=== PATIENT | male | born 1985 | race Caucasian/White ===

== ENCOUNTER 2018-09-07 01:45 | Emergency (ER) | payer SELFPAY ==
--- OUTSIDE RECORDS SUMMARY | 2018-09-07 01:48 | XMS REPORT ---
:1985 [facility] Address [address] [place] [address] Care Team Providers Name Role Phone UNKNOWN, REFFERING Primary Care Provider Unavailable SAIMA HUANG M.D. Unavailable Unavailable Problems This patient has no known problems. Allergies, Adverse Reactions, Alerts This patient has no known allergies or adverse reactions. Medications This patient has no known medications. Results Test Description Test Time Test Comments Text Results Atomic Results Result Comments RPR, Qual 2017-02-09 13:29:00 Test Item Value Reference Range Comments RPR (test code=RPR) Non-Reactive Non-Reactive [id number] 02:45:00 Test Item Value Reference Range Comments Amphetamine (test code=AMPH) Negative Negative For diagnostic purposes only, positive results should always be assessedin conjunctionwith the patient's medical history,clinical examination and otherfindings.To fulfill legal requirements, a more specific alternate chemical methodmust be used inorder to obtain a Confirmed analytical result. GC/MS is the preferred confirmatory method. Barbiturates (test code=CALLIE) Negative Negative Benzodiazepine (test Negative Negative code=HECTOR) Cocaine (test code=COCA) Negative Negative Methadone (test code=MTHD) Negative Negative Opiates (test code=OPIA) Negative Negative PCP (test code=PCP) Negative Negative Propoxyphene (test Negative Negative code=PROPOX) THC (test code=THC) Negative Negative Alcohol, Urine (test <0.01 g/dL 0.00-0.01 code=ETOHU) Comprehensive Metabolic [id number] 00:44:00 Test Item Value Reference Range Comments Sodium (test code=NA) 137 mmol/L 135-145 Potassium (test code=K) 3.8 mmol/L 3.5-5.1 Chloride (test code=CL) 101 mmol/L 98-105 Carbon Dioxide (test 24 mmol/L 22-29 code=CO2) Glucose (test code=GLU) 115 mg/dL 70-115 Blood Urea Nitrogen 10 mg/dL 6-20 (test code=BUN) Creatinine (test 0.7 mg/dL 0.7-1.2 code=CREAT) Calcium (test code=CA) 9.6 mg/dL 8.3-10.5 Prot Total (test 6.7 g/dL 6.4-8.3 code=TP) Albumin (test code=ALB) 4.3 g/dL 3.5-5.2 A/G Ratio (test 1.8 Ratio code=AGRATIO) Globulin (test 2.4 2.9-3.1 code=GLOB) Bili Total (test <0.1 mg/dL 0.1-0.9 code=TBIL) Alk Phos (test 95 U/L 40-129 code=APHOS) AST (test code=AST) 18 U/L 1-40 ALT (test code=ALT) 16 U/L 1-41 BUN/Creatinine Ratio 14.3 (test code=BCRATIO) Anion Gap (test 12 mmol/L 7-16 code=AGAP) Estimated GFR (test >60 mL/min/1.73m2 eGFR (estimated Glomerular code=GFR) Filtration Rate) is an estimated value,calculated from the patient's serum creatinine using the MDRD equation.It is NOT the patient's actual GFR. The eGFR provides a more clinicallyuseful measure of kidney disease than serum creatinine alone.This calculation takes sex and race into account, if the informationis provided. If the race is not provided, and the patient isAfrican-Moldovan, multiply by 1.212. If sex is not provided, and thepatient is female, multiply by 0.742. Results for patients <18 years ofage have not been validated by the MDRD study and should be interpretedwith caution.eGFR Result Interpretation:eGFR > or=60 is in the Normal RangeeGFR < 60 may mean kidney diseaseeGFR < 15 may mean kidney failureRanges recommended by the National Kidney Foundation,http://nkdep.nih .gov CBC with [id number] 00:26:00 Test Item Value Reference Range Comments WBC (test code=WBC) 8.9 K/cumm 4.4-10.5 RBC (test code=RBC) 4.46 M/cumm 4.10-5.70 Hemoglobin (test code=HGB) 13.6 gm/dL 13.4-17.4 Hematocrit (test code=HCT) 41.9 % 38.7-52.0 MCV (test code=MCV) 94.0 fL 80-100 MCH (test code=MCH) 30.6 pg 27.0-32.5 MCHC (test code=MCHC) 32.5 g/dL 32.0-37.5 RDW (test code=RDW) 13.1 % 11.5-14.5 Platelet Count (test code=PLTCT) 368 K/cumm 140-440 MPV (test code=MPV) 7.5 fL Diff Method (test code=DIFFM) Auto Neutrophil (test code=NEUT) 39.1 % 36-70 Lymphocyte (test code=LYMPH) 46.6 % 12-44 Monocyte (test code=MONO) 6.1 % 0-11 Eosinophil (test code=EOS) 7.2 % 0-7 Basophil (test code=BASO) 0.9 % 0-2 Neutro Abs (test code=ANEUT) 3.5 K/cumm 1.6-7.4 Lymph Abs (test code=ALYMPH) 4.2 K/cumm 0.5-4.6 [place] Abs (test code=AMONO) 0.5 K/cumm 0.0-1.2 Eos Abs (test code=AEOS) 0.64 K/cumm 0.00-0.74 Baso Abs (test code=ABASO) 0.1 K/cumm 0.00-0.21 Urinalysis [id number] 00:19:00 Test Item Value Reference Range Comments Color (test code=COLOR) Yellow Yellow,Straw,Pl yellow Clarity (test code=CLAR) Clear Clear Specific [place] (test code=SPGR) 1.008 1.001-1.035 pH (test code=PH) 7.0 5.0-9.0 Ketone (test code=KET) Negative mg/dL Negative Glucose (test code=GLUCUR) Negative mg/dL Negative Protein (test code=PROT) Negative mg/dL Negative Bilirubin (test code=BILI) Negative mg/dL Negative Occult Blood (test code=UDOB) Negative Negative Urobilinogen (test code=UROB) 0.2 mg/dL 0.2-1.0 Nitrite (test code=NIT) Negative Negative Leuk Esterase (test code=LEUK) Negative Negative Micros Exam (test code=MEXAM) Not indicated
[2018-09-07] MEDS ORDERED: ACETAMINOPHEN 500 MG TAB ONE (02:54)
[2018-09-07] MEDS ORDERED: IBUPROFEN 400 MG TAB ONE (02:54)
[2018-09-07] MEDS ORDERED: IBUPROFEN 200 MG TAB PO ONE (02:54)
[2018-09-07 04:32] LABS: Protime INR 1.01
[2018-09-07 04:33] LABS: Absolute Lymphocytes (CBC) 3.7 K/uL (0.7-4.9); Absolute Monocytes 0.7 K/uL (0.1-1.3); Absolute Neutrophil 5.3 K/uL (1.8-8.0); Basophils % 1.2 % (0-1.3); Eosinophils % 3.9 % (0-4.4); Hematocrit 38.3 % (39.6-49.0); Lymphocytes % 35.8 % (15.3-44.8); MPV 8.7 fL (7.6-11.3); Monocytes % 6.9 % (3.3-12.3); RBC Red Blood Cell Count 4.52 M/uL (4.33-5.43)
[2018-09-07 04:48] LABS: Potassium 2.3 mmol/L (3.5-5.1)
[2018-09-07] MEDS ORDERED: POTASSIUM 25 MEQ EFFERV TAB ONE (05:12)
[2018-09-07] MEDS ORDERED: POTASSIUM CL SA 10 MEQ TAB PO ONE (05:19)
[2018-09-07 05:47] LABS: Urine Culture Reflex Order NOT NEEDED
[2018-09-07 05:48] LABS: Urine Bacteria <20 /HPF (NONE SEEN); Urine RBC NONE SEEN /HPF (NONE SEEN)
[2018-09-07 05:49] LABS: Urine Blood NEGATIVE (NEG); Urine Glucose NEGATIVE (NEG); Urine Protein NEGATIVE (NEG)
[2018-09-07 05:58] LABS: Barbiturates NEGATIVE (NEGATIVE); Benzodiazepines NEGATIVE (NEGATIVE); Cocaine NEGATIVE (NEGATIVE); METHAMPHETAM NEGATIVE (NEGATIVE); Methadone NEGATIVE (NEGATIVE); Opiates NEGATIVE (NEGATIVE); Phencyclidine NEGATIVE (NEGATIVE); THC Cannibis NEGATIVE (NEGATIVE)
--- NOTE | 2018-09-07 06:31 | ER ---
Nurse's Notes [facility] Name: Vaughn Quintero Jr Age: 33 yrs Sex: Male : 1985 Arrival Date: 09/07/2018 Time: 01:46 Bed 7 Private MD: Diagnosis: Bilateral foot pain;insomnia;hypokalemia Presentation: 09/07 02:01 Presenting complaint: Patient states: that he is having pain and edema to both ankles, fc which started 3-4 days ago. Also has not slept in the past 4 days. Mother states: (called 1 hr prior to pts arrival) that pt was picked up by the police because he has schizo, bipolar and has not taken his meds in 6 years. Then states that pt has not slept in 6 days and is very "bipolar" at this time. She is "scared " of pt and is worried about him returning to her home. She wants pt to be taken to psych place. She is requesting us to contact her when he arrives to ER. Her name is Ledy Mercer [phone]. Transition of care: patient was not received from another setting of care. Onset of symptoms was September 03, 2018. Risk Assessment: Do you want to hurt yourself or someone else? Patient reports no desire to harm self or others. Initial Sepsis Screen: Does the patient meet any 2 criteria? No. Patient's initial sepsis screen is negative. Does the patient have a suspected source of infection? No. Patient's initial sepsis screen is negative. Care prior to arrival: None. 02:01 Method Of Arrival: Ambulatory 02:01 Acuity: KARTIK 3 fc Historical: - Allergies: 02:05 No Known Allergies; fc - Home Meds: 02:05 None [Active]; fc - PMHx: 02:05 Chronic pain; fc - PSHx: 02:05 left ankle; shoulder; fc - Immunization history:: Last tetanus immunization: unknown. - Social history:: Smoking status: Patient uses tobacco products, smokes one pack cigarettes per day. Patient/guardian denies using alcohol, street drugs. - Ebola Screening: : Patient negative for fever greater than or equal to 101.5 degrees Fahrenheit, and additional compatible Ebola Virus Disease symptoms Patient denies exposure to infectious person Patient denies travel to an Ebola-affected area in the 21 days before illness onset. - Family history:: not pertinent. - Hospitalizations: : No recent hospitalization is reported. Screenin:06 Abuse screen: Denies threats or abuse. Nutritional screening: No deficits noted. fc Tuberculosis screening: No symptoms or risk factors identified. Fall Risk None identified. Assessment: 02:15 General: Appears in no apparent distress. Behavior is drowsy, flat. General: Pt reports tl2 that he has not been able to sleep for 4 days. Denies SI or HI. MD is going to consult [facility] for psych eval. Pain: Complains of pain in ankles. Neuro: Level of Consciousness is awake, alert, obeys commands, Oriented to person, place, time, situation. Cardiovascular: Denies chest pain. Respiratory: Airway is patent Respiratory effort is even, unlabored, Respiratory pattern is regular, symmetrical. GI: No signs and/or symptoms were reported involving the gastrointestinal system. : No signs and/or symptoms were reported regarding the genitourinary system. Derm: Skin is pink, warm \\T\\ dry. 02:21 Reassessment: Spoke with Ghazal at [employer] dispatch [phone] who states that pt was fc brought to ER by [employer] police as a curtesy for his ankle pain. Dr Delgado then spoke with officer that brought pt here. 03:30 Reassessment: pt appears to be sleeping, RR even and unlabored. tl2 05:30 Reassessment: [facility] ER dyeing machine feeder at bedside. tl2 05:42 Reassessment: pt refuses vital signs. tl2 06:51 Reassessment: Patient and/or family updated on plan of care and expected duration. Pain ea level reassessed. Patient is alert, oriented x 3, equal unlabored respirations, skin warm/dry/pink. Discharge instruction given to patient, verbalized the understanding of instruction. No s/s of pain or discomfort noted at this time. Pt left ED ambulatory tolerating well, reports he would take the bus home. Vital Signs: 02:05 BP 123 / 81; Pulse 81; Resp 16; Temp 98.0(O); Pulse Ox 99% on R/A; Weight 63.5 kg (R); fc Height 5 ft. 2 in. (157.48 cm) (R); Pain 7/10; 06:45 BP 120 / 70; Pulse 78; Resp 18; Temp 97.6; Pulse Ox 98% on R/A; Pain 0/10; ea 02:05 Body Mass Index 25.61 (63.50 kg, 157.48 cm) ED Course: 01:46 Patient arrived in ED. am2 02:04 Triage completed. 02:05 Arm band placed on Patient placed in an exam room, on a stretcher. 02:06 Patient has correct armband on for positive identification. Bed in low position. Call light in reach. 02:24 Pedro Delgado MD is Attending Physician. wa 04:14 Inserted saline lock: 22 gauge in right hand, using aseptic technique. placed by ines Fam. 04:15 Initial lab(s) drawn, by mt, sent to lab. tl2 04:48 Notified ED physician of a critical lab result(s). potassium of 2.3. 06:45 IV discontinued, intact, bleeding controlled, No redness/swelling at site. Pressure ea dressing applied. 06:53 No provider procedures requiring assistance completed. ea Administered Medications: 02:45 Drug: Tylenol 1000 mg Route: PO; ea 03:00 Follow up: Response: No adverse reaction; Marked relief of symptoms ea 02:45 Drug: Motrin 600 mg Route: PO; ea 05:39 Follow up: Response: No adverse reaction; Pain is decreased ea 05:26 Not Given (Patient Refused): Potassium Effervescent Tablet 50 mEq PO once; dissolve in ea 4 ounces of water or juice 05:27 CANCELLED (Other Intervention Used): Potassium Chloride 40 mEq PO once ea 05:29 Drug: Potassium Chloride 50 mEq Route: PO; ea 06:00 Follow up: Response: No adverse reaction ea Outcome: 06:30 Discharge ordered by . wa 06:53 Discharged to home ambulatory. ea 06:53 Condition: stable 06:53 Discharge instructions given to patient, Instructed on discharge instructions, follow up and referral plans. medication usage, Demonstrated understanding of instructions, follow-up care, medications, Prescriptions given X 2. 06:56 Patient left the ED. ea Signatures: Marleni Aponte RN RN Berenice Temple RN RN 2 Cathi Marin Elena, RN RN Pedro Delgado MD MD wa Corrections: (The following items were deleted from the chart) 02:21 02:01 Presenting complaint: Patient states: that he is having pain and edema to both fc ankles, which started 3-4 days ago. Also has not slept in the past 4 days. fc
--- NOTE | 2018-09-07 06:32 | EDPHYS ---
Physician Documentation [facility] Name: Vaughn Quintero Jr Age: 33 yrs Sex: Male : 1985 Arrival Date: 09/07/2018 Time: 01:46 Bed 7 Private MD: ED Physician Pedro Delgado HPI: 09/07 06:16 This 33 yrs old Male presents to ER via Ambulatory with complaints of cant wa sleep, Decreased Appetite, ankle pain. 06:16 The patient presents to the emergency department with insomnia. per patient, difficulty wa sleeping. both feet hurt. denies trauma. pt was dropped off by police to check these symptoms. pt's mother called and states pt has been off his meds for over a month and needs his meds. per his mum, pt has bipolar d/o, schizophrenia, and OCD. pt however denies SI of HI. . Onset: The symptoms/episode began/occurred 1 week(s) ago. Past psychiatric history: Prior diagnosis: bipolar disorder, schizophrenia, Psychiatric medications include: unknown. Past psychiatric history: Primary psychiatric physician: the patient's psychiatric physician is not known, it is unknown whether or not the patient has had a prior suicide gesture, the patient has a previous inpatient psychiatric history, per pt's mum at [facility]. Associated signs and symptoms: Pertinent negatives: pt denies. 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 Severity of symptoms: At their worst the symptoms were moderate in the emergency department the symptoms are unchanged. It is unknown whether or not the patient has had similar symptoms in the past. The patient has not recently seen a physician. pt states here for pain in the feet. denies other complaints. Historical: - Allergies: 02:05 No Known Allergies; fc - Home Meds: 02:05 None [Active]; fc - PMHx: 02:05 Chronic pain; fc - PSHx: 02:05 left ankle; shoulder; fc - Immunization history:: Last tetanus immunization: unknown. - Social history:: Smoking status: Patient uses tobacco products, smokes one pack cigarettes per day. Patient/guardian denies using alcohol, street drugs. - Ebola Screening: : Patient negative for fever greater than or equal to 101.5 degrees Fahrenheit, and additional compatible Ebola Virus Disease symptoms Patient denies exposure to infectious person Patient denies travel to an Ebola-affected area in the 21 days before illness onset. - Family history:: not pertinent. - Hospitalizations: : No recent hospitalization is reported. ROS: 06:21 Constitutional: Negative for fever, chills, and weight loss, Eyes: Negative for injury, wa pain, redness, and discharge, ENT: Negative for injury, pain, and discharge, Neck: Negative for injury, pain, and swelling, Cardiovascular: Negative for chest pain, palpitations, and edema, Respiratory: Negative for shortness of breath, cough, wheezing, and pleuritic chest pain, Abdomen/GI: Negative for abdominal pain, nausea, vomiting, diarrhea, and constipation, Back: Negative for injury and pain, : Negative for injury, bleeding, discharge, and swelling, Skin: Negative for injury, rash, and discoloration, Neuro: Negative for headache, weakness, numbness, tingling, and seizure. 06:21 MS/extremity: Positive for pain, of the right foot and left foot. 06:21 Psych: Positive for depression, Negative for auditory hallucinations, visual hallucinations, homicidal ideation, suicide gesture, suicidal ideation. 06:21 All other systems are negative. Exam: 06:22 Constitutional: This is a well developed, well nourished patient who is awake, alert, wa and in no acute distress. Head/Face: Normocephalic, atraumatic. Eyes: Pupils equal round and reactive to light, extra-ocular motions intact. Lids and lashes normal. Conjunctiva and sclera are non-icteric and not injected. Cornea within normal limits. Periorbital areas with no swelling, redness, or edema. ENT: Nares patent. No nasal discharge, no septal abnormalities noted. Tympanic membranes are normal and external auditory canals are clear. Oropharynx with no redness, swelling, or masses, exudates, or evidence of obstruction, uvula midline. Mucous membranes moist. Neck: Trachea midline, no thyromegaly or masses palpated, and no cervical lymphadenopathy. Supple, full range of motion without nuchal rigidity, or vertebral point tenderness. No Meningismus. Chest/axilla: Normal chest wall appearance and motion. Nontender with no deformity. No lesions are appreciated. Cardiovascular: Regular rate and rhythm with a normal S1 and S2. No gallops, murmurs, or rubs. Normal PMI, no JVD. No pulse deficits. Respiratory: Lungs have equal breath sounds bilaterally, clear to auscultation and percussion. No rales, rhonchi or wheezes noted. No increased work of breathing, no retractions or nasal flaring. Abdomen/GI: Soft, non-tender, with normal bowel sounds. No distension or tympany. No guarding or rebound. No evidence of tenderness throughout. Back: No spinal tenderness. No costovertebral tenderness. Full range of motion. Skin: Warm, dry with normal turgor. Normal color with no rashes, no lesions, and no evidence of cellulitis. MS/ Extremity: Pulses equal, no cyanosis. Neurovascular intact. Full, normal range of motion. Neuro: Awake and alert, GCS 15, oriented to person, place, time, and situation. Cranial nerves II-XII grossly intact. Motor strength 5/5 in all extremities. Sensory grossly intact. Cerebellar exam normal. Normal gait. 06:22 Psych: Behavior/mood is cooperative, Affect is calm, Oriented to person, Patient has no thoughts/intents to harm self or others. Judgement / Insight is normal. Delusions/hallucinations are not present. 06:29 Musculoskeletal/extremity: Extremities: all appear grossly normal, with no appreciated wa pain with palpation, ROM: intact in all extremities, Circulation is intact in all extremities. the left foot and right foot Joints: All joints appear normal with full range of motion. Weight bearing: able to fully bear weight, Tendon exam: specific tendon testing normal through active and passive range of motion Vital Signs: 02:05 BP 123 / 81; Pulse 81; Resp 16; Temp 98.0(O); Pulse Ox 99% on R/A; Weight 63.5 kg (R); fc Height 5 ft. 2 in. (157.48 cm) (R); Pain 7/10; 06:45 BP 120 / 70; Pulse 78; Resp 18; Temp 97.6; Pulse Ox 98% on R/A; Pain 0/10; ea 02:05 Body Mass Index 25.61 (63.50 kg, 157.48 cm) fc MDM: 02:24 Patient medically screened. wa 06:23 Differential diagnosis: drug withdrawal. acute psychotic break, depression, psychosis wa secondary to non-compliance, patient denies mother's assertions. spoke with office [place] of police dept who dropped off pt. denied knowledge of pt's violence. states only gave pt a courtesy ride to ED to get checked. Data reviewed: vital signs, nurses notes. 06:25 Test interpretation: by ED physician or midlevel provider: labs noted for low K at 2.3. wa otherwise wnl.. ED course: replaced potassium. bilateral pedal exam noted within nml limits. x-rays not warranted. pain control with Motrin and tylenol. ED course: [facility] psych eval: pt denied symptoms except mild depression. personnel deemed pt fit for out pt treatment. will d/c with f/u. 09/07 03:12 Order name: Acetaminophen ak 09/07 03:12 Order name: Basic Metabolic Panel ak 09/07 03:12 Order name: CBC with Diff ak 09/07 03:12 Order name: ETOH Level; Complete Time: 06:25 ak 09/07 03:12 Order name: PT-INR; Complete Time: 06:25 ak 09/07 03:12 Order name: Salicylate; Complete Time: 06:25 ak 09/07 03:12 Order name: Urine Drug Screen; Complete Time: 06:25 ak 09/07 03:12 Order name: Urine Microscopic Only; Complete Time: 06:25 ak 09/07 03:13 Order name: Acetaminophen Level; Complete Time: 06:25 [facility] 09/07 03:13 Order name: Basic Metabolic Panel; Complete Time: 06:25 [facility] 09/07 03:14 Order name: CBC with Automated Diff; Complete Time: 06:25 [facility] 09/07 05:15 Order name: Urine Dipstick--Ancillary (enter results); Complete Time: 06:25 [facility] 09/07 03:12 Order name: IV Saline Lock; Complete Time: 04:14 ak 09/07 03:12 Order name: Labs collected and sent; Complete Time: 04:14 ak 09/07 03:12 Order name: Urine Dipstick-Ancillary (obtain specimen); Complete Time: 05:39 ak Administered Medications: 02:45 Drug: Tylenol 1000 mg Route: PO; ea 03:00 Follow up: Response: No adverse reaction; Marked relief of symptoms ea 02:45 Drug: Motrin 600 mg Route: PO; ea 05:39 Follow up: Response: No adverse reaction; Pain is decreased ea 05:26 Not Given (Patient Refused): Potassium Effervescent Tablet 50 mEq PO once; dissolve in ea 4 ounces of water or juice 05:27 CANCELLED (Other Intervention Used): Potassium Chloride 40 mEq PO once 05:29 Drug: Potassium Chloride 50 mEq Route: PO; ea 06:00 Follow up: Response: No adverse reaction Disposition: 09/07/18 06:30 Discharged to Home. Impression: Bilateral foot pain, insomnia, hypokalemia. - Condition is Stable. - Discharge Instructions: Insomnia, Hypokalemia. - Prescriptions for Ibuprofen 600 mg Oral Tablet - take 1 tablet by ORAL route every 8 hours As needed take with food; 18 tablet. Potassium Chloride 20 meq Oral Packet - take 1 packet by ORAL route 2 times per day 1 packet in 6 (six) ounces of water or juice; Take after meal; 10 packet. - Medication Reconciliation Form, Thank You Letter, Antibiotic Education, Prescription Opioid Use form. - Follow up: Private Physician; When: 2 - 3 days; Reason: Recheck today's complaints. - Problem is new. - Symptoms have improved. - Notes: follow up with the psychiatrist at [facility] per discussion. take potassium as prescribed Signatures: Dispatcher [employer] EDMarleni Vega RN RN Marleny Melendez RN RN ea AppiahPedro MD MD wa Corrections: (The following items were deleted from the chart) 05:27 05:27 Potassium Chloride Liquid 40 mEq PO once ordered. [facility] 06:31 06:30 09/07/2018 06:30 Discharged to Home. Impression: Bilateral foot pain; insomnia. ak Condition is Stable. Forms are Medication Reconciliation Form, Thank You Letter, Antibiotic Education, Prescription Opioid Use. Follow up: Private Physician; When: 2 - 3 days; Reason: Recheck today's complaints. Problem is new. Symptoms have improved. ak 06:56 06:31 09/07/2018 06:30 Discharged to Home. Impression: Bilateral foot pain; insomnia; ea hypokalemia. Condition is Stable. Forms are Medication Reconciliation Form, Thank You Letter, Antibiotic Education, Prescription Opioid Use. Follow up: Private Physician; When: 2 - 3 days; Reason: Recheck today's complaints. Problem is new. Symptoms have improved. lavinia
[2018-09-07 11:51] VITALS: BP 123/81; TEMP 98; O2SAT 99
== END 2018-09-07 06:56 | disposition home or self-care (01) ==
LOC: ER 01:45
DX: M79.672 Pain in left foot (principal); M79.671 Pain in right foot; E87.6 Hypokalemia; F17.210 Nicotine dependence, cigarettes, uncomplicated
CPT/HCPCS: 36415; 80048; 80307; 80320; 80329; 81003; 81015; 85025; 85610; 99284

== ENCOUNTER 2018-10-09 10:43 | Emergency (ER) | payer SELFPAY ==
--- OUTSIDE RECORDS SUMMARY | 2018-10-09 10:50 | XMS REPORT ---
:1985 [facility] Address [address] [place] [address] Care Team Providers Name Role Phone UNKNOWN, REFFERING Primary Care Provider Unavailable ASIMA HUANG M.D. Unavailable Unavailable Problems This patient has no known problems. Allergies, Adverse Reactions, Alerts This patient has no known allergies or adverse reactions. Medications This patient has no known medications. Results Test Description Test Time Test Comments Text Results Atomic Results Result Comments RPR, Qual 2017-02-09 13:29:00 Test Item Value Reference Range Comments RPR (test code=RPR) Non-Reactive Non-Reactive [id number] 02:45:00 Test Item Value Reference Range Comments [...] (test <0.01 g/dL 0.00-0.01 code=ETOHU) Comprehensive Metabolic [id number] 00:44:00 Test Item Value Reference Range Comments [...] race is not provided, and the patient isAfrican-East [place]orese, multiply by 1.212. If sex is not [...] the National Kidney Foundation,http://nkdep.nih .gov CBC with [id number] 00:26:00 Test Item Value Reference Range Comments [...] Lymph Abs (test code=ALYMPH) 4.2 K/cumm 0.5-4.6 [place] Abs (test code=AMONO) 0.5 K/cumm 0.0-1.2 Eos Abs (test code=AEOS) 0.64 K/cumm 0.00-0.74 Baso Abs (test code=ABASO) 0.1 K/cumm 0.00-0.21 Urinalysis [id number] 00:19:00 Test Item Value Reference Range Comments Color (test code=COLOR) Yellow Yellow,Straw,Pl yellow Clarity (test code=CLAR) Clear Clear Specific [place] (test code=SPGR) 1.008 1.001-1.035 pH (test code=PH) [...]
[2018-10-09] MEDS ORDERED: FAMOTIDINE 20 MG/2 ML VIAL IV ONE (11:44)
[2018-10-09] MEDS ORDERED: ONDANSETRON 4 MG/2 ML VIAL ONE (11:44)
[2018-10-09 12:06] LABS: Absolute Lymphocytes (CBC) 1.4 K/uL (0.7-4.9); Basophils % 1.1 % (0-1.3); Eosinophils % 3.9 % (0-4.4); Hematocrit 36.1 % (39.6-49.0); Lymphocytes % 17.7 % (15.3-44.8); MPV 8.6 fL (7.6-11.3)
[2018-10-09] MEDS ORDERED: NA CHLORIDE 0.9% 1,000 ML ONE ×2 (12:08→14:00)
[2018-10-09 12:16] LABS: Protime INR 0.92
--- NOTE | 2018-10-09 12:36 | EKG ---
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
[2018-10-09 12:47] LABS: Urine Blood NEGATIVE (NEG); Urine Glucose NEGATIVE (NEG); Urine Protein NEGATIVE (NEG)
[2018-10-09 12:56] LABS: Barbiturates NEGATIVE (NEGATIVE); Benzodiazepines NEGATIVE (NEGATIVE); Cocaine NEGATIVE (NEGATIVE); METHAMPHETAM NEGATIVE (NEGATIVE); Methadone NEGATIVE (NEGATIVE); Opiates NEGATIVE (NEGATIVE); Phencyclidine NEGATIVE (NEGATIVE); THC Cannibis POSITIVE (NEGATIVE)
[2018-10-09 13:30] LABS: ALT/SGPT 19 U/L (12-78); AST/SGOT 14 U/L (15-37); Albumin 3.6 g/dL (3.4-5.0); Alkaline Phosphatase 97 U/L (45-117); BUN Blood Urea Nitrogen 8 mg/dL (7-18); Bicarbonate 29 mmol/L (21-32); Bilirubin Direct < 0.1 mg/dL (0-0.2); Bilirubin Total 0.2 mg/dL (0.2-1.0); Glucose Level 94 mg/dL (74-106); Potassium 3.1 mmol/L (3.5-5.1); Protein, Total 6.3 g/dL (6.4-8.2); Sodium Level 140 mmol/L (136-145)
[2018-10-09] MEDS ORDERED: POTASSIUM 25 MEQ EFFERV TAB ONE (14:00)
[2018-10-10] MEDS ORDERED: ACETAMINOPHEN 325 MG TABLET ONE (21:18)
--- NOTE | 2018-10-11 13:47 | ER ---
Nurse's Notes [facility] Name: Vaughn Quintero II Age: 33 yrs Sex: Male : 1985 Arrival Date: 10/09/2018 Time: 10:49 Bed 8 Private MD: Diagnosis: Suicidal/Homicial Ideation Presentation: 10/09 10:52 Presenting complaint: Patient states: SUICIDAL ATTEMPT LAST WEEK WITH OVERDOSE, NOW bp WITH BACK PAIN, ANKLE PAIN, CHRONIC PAIN, SI AND HI. Transition of care: patient was not received from another setting of care. Onset of symptoms is unknown. Risk Assessment: Do you want to hurt yourself or someone else? Patient reports desire/thoughts of hurting themselves or someone else. Provider notified. Initial Sepsis Screen: Does the patient meet any 2 criteria? No. Patient's initial sepsis screen is negative. Does the patient have a suspected source of infection? No. Patient's initial sepsis screen is negative. Care prior to arrival: None. 10:52 Method Of Arrival: Ambulatory bp 10:52 Acuity: KARTIK 2 bp Triage Assessment: 11:01 General: Appears in no apparent distress. Behavior is cooperative. Pain: Complains of tw2 pain in back. Historical: - Allergies: 11:01 ketorolac tromethamine; tw2 11:01 PENICILLINS; tw2 11:01 Sulfa (Sulfonamide Antibiotics); tw2 11:01 Tramadol HCl; tw2 - PMHx: 11:01 Chronic pain; tw2 - PSHx: 11:01 left ankle; shoulder; tw2 - Immunization history:: Adult Immunizations. - Social history:: Smoking status: . - Ebola Screening: : Patient denies travel to an Ebola-affected area in the 21 days before illness onset. Screenin:03 Abuse screen: Denies threats or abuse. Nutritional screening: No deficits noted. tw2 Tuberculosis screening: No symptoms or risk factors identified. Fall Risk None identified. Assessment: 10:00 Reassessment: Patient appears in no apparent distress at this time. No changes from tw2 previously documented assessment. Patient and/or family updated on plan of care and expected duration. Pain level reassessed. Patient is alert, oriented x 3, equal unlabored respirations, skin warm/dry/pink. 11:03 General: Appears in no apparent distress. Behavior is cooperative. Pain: Complains of tw2 pain in back. Neuro: Level of Consciousness is awake, alert, obeys commands, Oriented to person, place, time, situation. Cardiovascular: Heart tones S1 S2 Patient's skin is warm and dry. Respiratory: Airway is patent Respiratory effort is even, unlabored, Respiratory pattern is regular, symmetrical, Breath sounds are clear bilaterally. GI: Abdomen is flat, Bowel sounds present X 4 quads. : No signs and/or symptoms were reported regarding the genitourinary system. EENT: No signs and/or symptoms were reported regarding the EENT system. Derm: No signs and/or symptoms reported regarding the dermatologic system. Musculoskeletal: Range of motion: intact in all extremities, Reports pain in back. 11:39 Reassessment: Patient appears in no apparent distress at this time. Patient and/or ch family updated on plan of care and expected duration. Pain level reassessed. Patient is alert, oriented x 3, equal unlabored respirations, skin warm/dry/pink. pt states he want to kill himself and others using cyanide. 12:03 Reassessment: Patient appears in no apparent distress at this time. pt given water to ch drink, is not drinking it. pt verb understanding of need for urine sample to clear pt. pt states he just wants to sleep. provider notified, pt medicated with 1L ns. 12:58 Reassessment: Patient appears in no apparent distress at this time. Patient and/or tw2 family updated on plan of care and expected duration. Pain level reassessed. Patient is alert, oriented x 3, equal unlabored respirations, skin warm/dry/pink. 14:35 Reassessment: Nurse to nurse report given to NELSON Grigsby at [facility]. nidhi Jenkins states that they will call back for doc to doc report while they are still verifying bed availability. 15:01 Reassessment: Patient appears in no apparent distress at this time. No changes from previously documented assessment. Patient and/or family updated on plan of care and expected duration. Pain level reassessed. 16:00 Reassessment: Patient appears in no apparent distress at this time. Patient and/or tw2 family updated on plan of care and expected duration. Pain level reassessed. Patient is alert, oriented x 3, equal unlabored respirations, skin warm/dry/pink. pt appears to be sleeping at this time. 17:00 Reassessment: Patient appears in no apparent distress at this time. Patient and/or tw2 family updated on plan of care and expected duration. Pain level reassessed. Patient is alert, oriented x 3, equal unlabored respirations, skin warm/dry/pink. pt appears to be sleeping at this time. 18:00 Reassessment: Patient appears in no apparent distress at this time. No changes from tw2 previously documented assessment. Patient and/or family updated on plan of care and expected duration. Pain level reassessed. Patient is alert, oriented x 3, equal unlabored respirations, skin warm/dry/pink. 19:15 General: Appears in no apparent distress. comfortable, Behavior is calm, cooperative, tl2 appropriate for age. Pain: Denies pain. Neuro: Level of Consciousness is awake, alert, obeys commands, Oriented to person, place, time, situation. Cardiovascular: Denies chest pain. Respiratory: Airway is patent Respiratory effort is even, unlabored, Respiratory pattern is regular, symmetrical. GI: No signs and/or symptoms were reported involving the gastrointestinal system. : No signs and/or symptoms were reported regarding the genitourinary system. Derm: Skin is pink, warm \\T\\ dry. 19:32 Reassessment: Patient appears in no apparent distress at this time. Patient is alert, lp1 oriented x 3, equal unlabored respirations, skin warm/dry/pink. Patient given juice at this time. General: Behavior is calm, cooperative. 21:00 Reassessment: Patient appears in no apparent distress at this time. Patient and/or tl2 family updated on plan of care and expected duration. Pain level reassessed. Patient is alert, oriented x 3, equal unlabored respirations, skin warm/dry/pink. 23:00 Reassessment: Patient appears in no apparent distress at this time. Patient and/or tl2 family updated on plan of care and expected duration. Pain level reassessed. Patient is alert, oriented x 3, equal unlabored respirations, skin warm/dry/pink. 10/10 01:00 Reassessment: Patient appears in no apparent distress at this time. Patient and/or tl2 family updated on plan of care and expected duration. Pain level reassessed. Patient is alert, oriented x 3, equal unlabored respirations, skin warm/dry/pink. 02:00 Reassessment: pt appears to be sleeping, RR even and unlabored. tl2 03:00 Reassessment: Pt appears to be sleeping. tl2 05:00 Reassessment: Pt appears to be sleeping. tl2 07:00 Reassessment: Pt resting in bed with eyes closed, respirations even and unlabored, skin aa5 is pink/warm/dry. Breakfast ordered. . 08:00 Reassessment: Patient is alert, oriented x 3, equal unlabored respirations, skin aa5 warm/dry/pink. Pt given urinal. Pt notified of long wait time for transfer, pt verbalized understanding, pt states "I know nobody knows exactly how much longer is going to be for me to be transferred". . General: Appears comfortable, Behavior is calm, cooperative. 08:19 Reassessment: Patient is alert, oriented x 3, equal unlabored respirations, skin aa5 warm/dry/pink. Pt sitting up in bed eating breakfast, pt tolerating well . 09:15 Reassessment: Pt resting in bed with eyes closed, respirations even and unlabored, skin aa5 is pink/warm/dry. . 10:15 Reassessment: Patient is alert, oriented x 3, equal unlabored respirations, skin aa5 warm/dry/pink. Provided urinal to meet elimination needs,pt voided once.. 10:53 Reassessment: Pt resting in bed with eyes closed,respirations even and unlabored, skin aa5 is pink/warm/dry.. 11:30 Reassessment: Pt resting in bed with eyes closed, respirations even and unlabored, skin aa5 is pink/warm/dry. . 11:35 Reassessment: Spoke with intake nurse at [facility] for an update who reports that ss somebody should have called yesterday to update that there was not a bed available. Nurse states that she will look into another bed becoming available today and will call back shortly. 12:30 Reassessment: Patient is alert, oriented x 3, equal unlabored respirations, skin aa5 warm/dry/pink. Pt given lunch tray, pt tolerating well. . 13:30 Reassessment: Pt resting in bed with eyes closed, respirations even and unlabored, skin aa5 is pink/warm/dry. . 14:30 Reassessment: Pt resting in bed with eyes closed, respirations even and unlabored, skin aa5 is pink/warm/dry. 15:17 Reassessment: After calling [facility] after not hearing back from them ss for hours, Spoke with staff who state that they see in patient's record that he is "not clinically appropriate", but are unsure of what that means. Requested to speak with director, of which Calista states that "Lizabeth" biomedical equipment tech will call back within 30 mintues. 15:30 Reassessment: Pt resting in bed with eyes closed. Respirations even and unlabored, skin aa5 is pink/warm/dry. . 16:30 Reassessment: Pt resting in bed with eyes closed, respirations even and unlabored, skin aa5 is pink/warm/dry. 17:30 Reassessment: Patient is alert, oriented x 3, equal unlabored respirations, skin aa5 warm/dry/pink. Pt given dinner tray, pt tolerating well. . 18:26 Reassessment: Called [facility] again to speak with Lizabeth as call has not been ss returned. Calista states that she will remind her to call back. Awaiting placement/ approval from psych facilities. 18:30 Reassessment: Pt resting in bed with eyes closed,respirations even and unlabored, skin aa5 is pink/warm/dry. . 19:00 Reassessment: Patient appears in no apparent distress at this time. Patient and/or aa1 family updated on plan of care and expected duration. Pain level reassessed. Patient is alert, oriented x 3, equal unlabored respirations, skin warm/dry/pink. Pt awaiting psych transfer acceptance. 19:57 Reassessment: Patient appears in no apparent distress at this time. Patient and/or aa1 family updated on plan of care and expected duration. Pain level reassessed. Patient is alert, oriented x 3, equal unlabored respirations, skin warm/dry/pink. Pt continues to await psych transfer acceptance. 21:00 Reassessment: Patient appears in no apparent distress at this time. Patient and/or aa1 family updated on plan of care and expected duration. Pain level reassessed. Patient is alert, oriented x 3, equal unlabored respirations, skin warm/dry/pink. Pt requesting pain medication for headache. 22:00 Reassessment: Patient appears in no apparent distress at this time. Patient and/or aa1 family updated on plan of care and expected duration. Pain level reassessed. Patient is alert, oriented x 3, equal unlabored respirations, skin warm/dry/pink. Pt resting quietly; awaiting acceptance to psych facility. 23:00 Reassessment: Patient appears in no apparent distress at this time. Patient and/or aa1 family updated on plan of care and expected duration. Pain level reassessed. Patient is alert, oriented x 3, equal unlabored respirations, skin warm/dry/pink. Pt resting quietly; awaiting acceptance to psych facility. 10/11 00:00 Reassessment: Patient appears in no apparent distress at this time. Patient and/or aa1 family updated on plan of care and expected duration. Pain level reassessed. Patient is alert, oriented x 3, equal unlabored respirations, skin warm/dry/pink. 01:00 Reassessment: Patient appears in no apparent distress at this time. Patient and/or aa1 family updated on plan of care and expected duration. Pain level reassessed. Patient is alert, oriented x 3, equal unlabored respirations, skin warm/dry/pink. Pt resting quietly; awaiting acceptance to psych facility. 02:00 Reassessment: Patient appears in no apparent distress at this time. Patient and/or aa1 family updated on plan of care and expected duration. Pain level reassessed. Patient is alert, oriented x 3, equal unlabored respirations, skin warm/dry/pink. Pt resting quietly; awaiting acceptance to psych facility. 03:00 Reassessment: Patient appears in no apparent distress at this time. Patient and/or aa1 family updated on plan of care and expected duration. Pain level reassessed. Patient is alert, oriented x 3, equal unlabored respirations, skin warm/dry/pink. Pt resting quietly; awaiting acceptance to psych facility. 04:00 Reassessment: Patient appears in no apparent distress at this time. Patient and/or aa1 family updated on plan of care and expected duration. Pain level reassessed. Patient is alert, oriented x 3, equal unlabored respirations, skin warm/dry/pink. Pt resting quietly; awaiting acceptance to psych facility. 05:00 Reassessment: Patient appears in no apparent distress at this time. Patient and/or aa1 family updated on plan of care and expected duration. Pain level reassessed. Patient is alert, oriented x 3, equal unlabored respirations, skin warm/dry/pink. Pt resting quietly; awaiting acceptance to psych facility. 06:00 Reassessment: Patient appears in no apparent distress at this time. Patient and/or aa1 family updated on plan of care and expected duration. Pain level reassessed. Patient is alert, oriented x 3, equal unlabored respirations, skin warm/dry/pink. Pt resting quietly; awaiting acceptance to psych facility. 07:00 Reassessment: Patient appears in no apparent distress at this time. Patient and/or aa1 family updated on plan of care and expected duration. Pain level reassessed. Patient is alert, oriented x 3, equal unlabored respirations, skin warm/dry/pink. Pt resting quietly; awaiting acceptance to psych facility. 09:35 Reassessment: Kaela from [facility] reports that they will have discharges for sg [facility] and will call back for nurse to nurse and doctor to doctor report. will continue to monitor. 11:20 Reassessment: pt report called to Amy DAMON at [facility], ordered to redraw a potassium sg level, and fax new results. Acceptance to [facility] has been granted at this time, however please do not send pt due to bed not available until around 2 pm, pt stated understanding. 11:30 Reassessment: a repeat potassium level has been sent to lab. sg 12:00 Reassessment: awaiting lab results at this time. sg 12:40 Reassessment: Patient appears in no apparent distress at this time. Patient and/or ph family updated on plan of care and expected duration. Pain level reassessed. Patient is alert, oriented x 3, equal unlabored respirations, skin warm/dry/pink. Spoke w/ Amy from [facility] who called to follow up on repeat potassium level, number received for doc-doc report. Psych: 10/09 11:02 Subjective: Patient's mood is sad. Objective: Patient is cooperative, Speech is normal. tw2 Interventions: Removed personal items and placed in bag. Patient placed in hospital gown. Suicide Risk Assessment: Sad Person Scale: Sex of patient: Male: Score 1 point. Age of patient: Score 1 point if patient is over 65. Depression: Score 1 point if signs of depression are present. Previous Attempt: Score 1 point if patient has previously attempted suicide. Substance Abuse: Score 0 point if patient does not abuse alcohol or drugs. Rational Thinking: Score 0 point if patient has rational thinking. Social Support: Score 1 point if social support is lacking and/or unavailable. Organized Plan: Score 1 point if patient had a plan in place. Relationship: Score 1 point if patient is , , , or for a single male Chronic Sickness: Score 0 point if patient does not have a chronic illness, debilitating, or severe disorder. Safety Checks: Personal items have been removed. Pt has been placed in a hallway bed/chair. sitter present at bedside and will remain with pt throughout shift. Pt denies substance abuse. 10/10 08:00 Commitment: Patient will be a voluntary commitment. aa5 Vital Signs: 10/09 10:56 BP 111 / 69; Pulse 74; Resp 16; Temp 97; Pulse Ox 97% ; Weight 58.97 kg; Height 5 ft. 2 bp in. (157.48 cm); 11:05 BP 109 / 69; Pulse 64; Resp 17; Pulse Ox 99% on R/A; jp3 12:03 BP 92 / 54; Pulse 58; Resp 14; Temp 97.8; Pulse Ox 99% on R/A; Pain 0/10; ch 15:56 BP 103 / 68 RA Sitting (auto/lg); Pulse 77; Resp 16; Pulse Ox 98% on R/A; ag 22:00 BP 115 / 88; Pulse 81; Resp 14; Temp 97.9(O); Pulse Ox 100% on R/A; ag4 10/10 08:05 BP 112 / 72; Pulse 64; Resp 16 S; Temp 97.6(O); Pulse Ox 99% on R/A; Pain 0/10; aa5 12:31 BP 99 / 63; Pulse 79; Resp 16; Pulse Ox 100% on R/A; ag 16:11 BP 90 / 55 RA Supine (auto/reg); Pulse 69; Resp 16; Pulse Ox 98% on R/A; ag 18:41 BP 101 / 62 LA Supine (auto/reg); Pulse 70; Resp 18; Pulse Ox 100% on R/A; ag 19:45 BP 108 / 57; Pulse 79; Resp 18; Temp 98.1; Pulse Ox 99% ; Pain 0/10; cm6 21:36 BP 109 / 67; Pulse 84; Resp 18; Temp 98.2; Pulse Ox 99% ; Pain 0/10; cm6 06/19 00:00 BP 95 / 64; Pulse 50; Resp 18; Temp 98.1; Pulse Ox 99% ; Pain 0/10; cm6 02:00 BP 106 / 60; Pulse 57; Resp 16; Temp 97.9(O); Pulse Ox 100% on R/A; oe 04:05 BP 103 / 69; Pulse 61; Resp 18; Temp 98(O); Pulse Ox 100% on R/A; oe 06:00 BP 104 / 66; Pulse 61; aa8 06:00 BP 104 / 66; Pulse 61; Resp 18; Temp 98.1; Pulse Ox 100% ; aa8 08:03 BP 110 / 59; Pulse 69; Resp 17; Pulse Ox 99% on R/A; jb1 10:08 BP 107 / 62; Pulse 65; Resp 17; Pulse Ox 100% on R/A; jb1 14:15 BP 98 / 61; Pulse 72; Resp 16; Temp 97.8(O); Pulse Ox 99% on R/A; mh5 10/09 10:56 Body Mass Index 23.78 (58.97 kg, 157.48 cm) bp ED Course: 10/09 10:49 Patient arrived in ED. mr 10:56 Triage completed. bp 10:56 Arm band placed on. bp 11:00 Melisa Cameron, NELSON is Primary Nurse. tw2 11:00 Marc Vargas PA is PHCP. cp 11:00 Delonte Henderson MD is Attending Physician. cp 11:00 Safety checks: Items removed: no. Reason for not removing items: currently in trauma jp3 room 2 due to available room space Door open/sign placed on door: yes. Family/friend present: no. Sitter present: Yes. 11:00 Warm blanket given. Pillow given. jp3 11:03 Placed in gown. Bed in low position. Sitter at bedside. tw2 11:15 Safety checks: Items removed: no. Reason for not removing items: Door open/sign placed jp3 on door: yes. Family/friend present: no. Sitter present: Yes. 11:20 Initial lab(s) drawn, by me, sent to lab. Inserted saline lock: 20 gauge in left jp3 antecubital area, using aseptic technique. Blood collected. Patient maintains SpO2 saturation greater than 95% on room air. 11:30 Safety checks: Items removed: no. Reason for not removing items: Door open/sign placed jp3 on door: yes. Family/friend present: no. Sitter present: Yes. 11:35 EKG done, by biomedical equipment tech. reviewed by Marc ARAYA. sm3 11:36 Acetaminophen Level Sent. jp3 11:36 Basic Metabolic Panel Sent. jp3 11:36 Acetaminophen Sent. jp3 11:36 Basic Metabolic Panel Sent. jp3 11:36 CBC with Diff Sent. jp3 11:36 ETOH Level Sent. jp3 11:36 Hepatic Function Sent. jp3 11:36 PT-INR Sent. jp3 11:36 Salicylate Sent. jp3 11:36 Ptt, Activated Sent. jp3 11:40 Diet tray ordered. 3 11:45 Safety checks: Items removed: no. Reason for not removing items: Door open/sign placed jp3 on door: yes. Family/friend present: no. Sitter present: Yes. 12:00 Safety checks: Items removed: no. Reason for not removing items: Door open/sign placed jp3 on door: yes. Family/friend present: no. Sitter present: Yes. 12:03 No provider procedures requiring assistance completed. 12:15 Safety checks: Items removed: no. Reason for not removing items: Door open/sign placed jp3 on door: yes. Family/friend present: no. Sitter present: Yes. 12:17 Urine collected: clean catch specimen, clear, jamie colored. [facility] 12:30 Safety checks: Items removed: no. Reason for not removing items: Door open/sign placed jp3 on door: yes. Family/friend present: no. Sitter present: Yes. Other: Pt is currently sleeping. 12:36 Diet tray given. Diet: Patient given a regular meal tray. Patient given snack. Patient jp3 given water. Tolerated well. 12:45 Safety checks: Items removed: yes. Door open/sign placed on door: yes. Family/friend ag present: no. Sitter present: Yes. Other: Patients belongings picked up by Security. Patient transferred to ER 8. 13:04 Safety checks: Items removed: yes. Door open/sign placed on door: yes. Family/friend ag present: no. Sitter present: Yes. 13:17 Safety checks: Items removed: yes. Door open/sign placed on door: yes. Family/friend ag present: no. Sitter present: Yes. 13:31 Safety checks: Items removed: yes. Door open/sign placed on door: yes. Family/friend ag present: no. Sitter present: Yes. 13:45 Safety checks: Items removed: yes. Door open/sign placed on door: yes. Family/friend ag present: no. Sitter present: Yes. 13:53 Side rails up X 1. Side rails up X2. Sitter at bedside. Assisted with urinal. ag 14:01 Safety checks: Items removed: yes. Door open/sign placed on door: yes. Family/friend ag present: no. Sitter present: Yes. 14:15 Safety checks: Items removed: yes. Door open/sign placed on door: yes. Family/friend ag present: no. Sitter present: Yes. 14:30 Safety checks: Items removed: yes. Door open/sign placed on door: yes. Family/friend ag present: no. Sitter present: Yes. 14:45 Safety checks: Items removed: yes. Door open/sign placed on door: yes. Family/friend ag present: no. Sitter present: Yes. 15:00 Safety checks: Items removed: yes. Door open/sign placed on door: yes. Family/friend ag present: no. Sitter present: Yes. 15:15 Safety checks: Items removed: yes. Door open/sign placed on door: yes. Family/friend ag present: no. Sitter present: Yes. 15:29 Safety checks: Items removed: yes. Door open/sign placed on door: yes. Family/friend ag present: no. Sitter present: Yes. [facility] is present with the patient in the room. 15:45 Safety checks: Items removed: yes. Door open/sign placed on door: yes. Family/friend ag present: no. Sitter present: Yes. 16:00 Safety checks: Items removed: yes. Door open/sign placed on door: yes. Family/friend ag present: no. Sitter present: Yes. 16:15 Safety checks: Items removed: yes. Door open/sign placed on door: yes. Family/friend ag present: no. Sitter present: Yes. 16:33 Safety checks: Items removed: yes. Door open/sign placed on door: yes. Family/friend ag present: no. Sitter present: Yes. 16:45 Safety checks: Items removed: yes. Door open/sign placed on door: yes. Family/friend ag present: no. Sitter present: Yes. 17:00 Safety checks: Items removed: yes. Door open/sign placed on door: yes. Family/friend ag present: no. Sitter present: Yes. 17:15 Safety Checks: Personal items have been removed. The door is open or patient has been tw2 placed in a hallway bed/chair. There are no family/friend visitors at this time Sitter present at this time. 17:[address] [facility], [facility], [facility], [facility], [facility] and [facility]. 17:17 Safety checks: Items removed: yes. Door open/sign placed on door: yes. Family/friend ag present: no. Sitter present: Yes. 17:30 Safety Checks: Personal items have been removed. The door is open or patient has been tw2 placed in a hallway bed/chair. There are no family/friend visitors at this time Sitter present at this time. 17:30 Safety checks: Items removed: yes. Door open/sign placed on door: yes. Family/friend ag present: no. Sitter present: Yes. 17:45 Safety Checks: Personal items have been removed. The door is open or patient has been tw2 placed in a hallway bed/chair. There are no family/friend visitors at this time Sitter present at this time. 17:45 Safety checks: Items removed: yes. Door open/sign placed on door: yes. Family/friend ag present: no. Sitter present: Yes. 17:50 talked to Amy at [facility], chart under review. bd 18:00 Safety Checks: Personal items have been removed. The door is open or patient has been tw2 placed in a hallway bed/chair. There are no family/friend visitors at this time Sitter present at this time. 18:00 Safety checks: Items removed: yes. Door open/sign placed on door: yes. Family/friend ag present: no. Sitter present: Yes. 18:15 Safety checks: Items removed: yes. Door open/sign placed on door: yes. Family/friend ag present: no. Sitter present: Yes. 18:33 Safety checks: Items removed: yes. Door open/sign placed on door: yes. Family/friend ag present: no. Sitter present: Yes. 18:46 Safety checks: Items removed: yes. Door open/sign placed on door: yes. Family/friend ag present: no. Sitter present: Yes. 19:00 Safety Checks: Personal items have been removed. The door is open or patient has been tl2 placed in a hallway bed/chair. There are no family/friend visitors at this time Sitter present at this time. 19:00 Safety checks: Items removed: yes. Door open/sign placed on door: yes. Family/friend ag present: no. Sitter present: Yes. 19:10 Report given to NELSON Tejeda. tw2 19:15 Safety Checks: Personal items have been removed. The door is open or patient has been tl2 placed in a hallway bed/chair. There are no family/friend visitors at this time Sitter present at this time. 19:15 Safety checks: Items removed: yes. Door open/sign placed on door: yes. Family/friend ag4 present: no. Sitter present: Yes. 19:30 Safety Checks: Personal items have been removed. The door is open or patient has been tl2 placed in a hallway bed/chair. There are no family/friend visitors at this time Sitter present at this time. 19:30 Safety checks: Items removed: yes. Door open/sign placed on door: yes. Family/friend ag4 present: no. Sitter present: Yes. 19:45 Safety Checks: Personal items have been removed. The door is open or patient has been tl2 placed in a hallway bed/chair. There are no family/friend visitors at this time Sitter present at this time. 19:45 Safety checks: Items removed: yes. Door open/sign placed on door: yes. Family/friend ag4 present: no. Sitter present: Yes. 20:00 Safety Checks: Personal items have been removed. The door is open or patient has been tl2 placed in a hallway bed/chair. There are no family/friend visitors at this time Sitter present at this time. 20:00 Safety checks: Items removed: yes. Door open/sign placed on door: yes. Family/friend ag4 present: no. Sitter present: Yes. 20:15 Safety Checks: Personal items have been removed. The door is open or patient has been tl2 placed in a hallway bed/chair. There are no family/friend visitors at this time Sitter present at this time. 20:15 Safety checks: Items removed: yes. Door open/sign placed on door: yes. Family/friend ag4 present: no. Sitter present: Yes. 20:30 Safety Checks: Personal items have been removed. The door is open or patient has been tl2 placed in a hallway bed/chair. There are no family/friend visitors at this time Sitter present at this time. 20:45 Safety Checks: Personal items have been removed. The door is open or patient has been tl2 placed in a hallway bed/chair. There are no family/friend visitors at this time Sitter present at this time. 21:00 Safety Checks: Personal items have been removed. The door is open or patient has been tl2 placed in a hallway bed/chair. There are no family/friend visitors at this time Sitter present at this time. 21:15 Safety Checks: Personal items have been removed. The door is open or patient has been tl2 placed in a hallway bed/chair. There are no family/friend visitors at this time Sitter present at this time. Safety Checks: Personal items have been removed. The door is open or patient has been placed in a hallway bed/chair. There are no family/friend visitors at this time Sitter present at this time. 21:30 Safety Checks: Personal items have been removed. The door is open or patient has been tl2 placed in a hallway bed/chair. There are no family/friend visitors at this time Sitter present at this time. 21:45 Safety Checks: Personal items have been removed. The door is open or patient has been tl2 placed in a hallway bed/chair. There are no family/friend visitors at this time Sitter present at this time. 22:00 Safety Checks: Personal items have been removed. The door is open or patient has been tl2 placed in a hallway bed/chair. There are no family/friend visitors at this time Sitter present at this time. 22:15 Safety Checks: Personal items have been removed. The door is open or patient has been tl2 placed in a hallway bed/chair. There are no family/friend visitors at this time Sitter present at this time. 22:30 Safety Checks: Personal items have been removed. The door is open or patient has been tl2 placed in a hallway bed/chair. There are no family/friend visitors at this time Sitter present at this time. 22:45 Safety Checks: Personal items have been removed. The door is open or patient has been tl2 placed in a hallway bed/chair. There are no family/friend visitors at this time Sitter present at this time. 23:00 Safety Checks: Personal items have been removed. The door is open or patient has been tl2 placed in a hallway bed/chair. There are no family/friend visitors at this time Sitter present at this time. 23:15 Safety Checks: Personal items have been removed. The door is open or patient has been tl2 placed in a hallway bed/chair. There are no family/friend visitors at this time Sitter present at this time. 23:30 Safety Checks: Personal items have been removed. The door is open or patient has been tl2 placed in a hallway bed/chair. There are no family/friend visitors at this time Sitter present at this time. 23:45 Safety Checks: Personal items have been removed. The door is open or patient has been tl2 placed in a hallway bed/chair. There are no family/friend visitors at this time Sitter present at this time. 10/10 00:00 Safety Checks: Personal items have been removed. The door is open or patient has been tl2 placed in a hallway bed/chair. There are no family/friend visitors at this time Sitter present at this time. 00:15 Safety Checks: Personal items have been removed. The door is open or patient has been tl2 placed in a hallway bed/chair. There are no family/friend visitors at this time Sitter present at this time. 00:30 Safety Checks: Personal items have been removed. The door is open or patient has been tl2 placed in a hallway bed/chair. There are no family/friend visitors at this time Sitter present at this time. 00:45 Safety Checks: Personal items have been removed. The door is open or patient has been tl2 placed in a hallway bed/chair. There are no family/friend visitors at this time Sitter present at this time. 01:00 Safety Checks: Personal items have been removed. The door is open or patient has been tl2 placed in a hallway bed/chair. There are no family/friend visitors at this time Sitter present at this time. 01:15 Safety Checks: Personal items have been removed. The door is open or patient has been tl2 placed in a hallway bed/chair. There are no family/friend visitors at this time Sitter present at this time. 01:30 Safety Checks: Personal items have been removed. The door is open or patient has been tl2 placed in a hallway bed/chair. There are no family/friend visitors at this time Sitter present at this time. 01:45 Safety Checks: Personal items have been removed. The door is open or patient has been tl2 placed in a hallway bed/chair. There are no family/friend visitors at this time Sitter present at this time. 02:00 Safety Checks: Personal items have been removed. The door is open or patient has been tl2 placed in a hallway bed/chair. There are no family/friend visitors at this time Sitter present at this time. 02:15 Safety Checks: Personal items have been removed. The door is open or patient has been tl2 placed in a hallway bed/chair. There are no family/friend visitors at this time Sitter present at this time. 02:30 Safety Checks: Personal items have been removed. The door is open or patient has been tl2 placed in a hallway bed/chair. There are no family/friend visitors at this time Sitter present at this time. 02:45 Safety Checks: Personal items have been removed. The door is open or patient has been tl2 placed in a hallway bed/chair. There are no family/friend visitors at this time Sitter present at this time. 03:00 Safety Checks: Personal items have been removed. The door is open or patient has been tl2 placed in a hallway bed/chair. There are no family/friend visitors at this time Sitter present at this time. 03:15 Safety Checks: Personal items have been removed. The door is open or patient has been tl2 placed in a hallway bed/chair. There are no family/friend visitors at this time Sitter present at this time. 03:30 Safety Checks: Personal items have been removed. The door is open or patient has been tl2 placed in a hallway bed/chair. There are no family/friend visitors at this time Sitter present at this time. 03:45 Safety Checks: Personal items have been removed. The door is open or patient has been tl2 placed in a hallway bed/chair. There are no family/friend visitors at this time Sitter present at this time. 04:00 Safety Checks: Personal items have been removed. The door is open or patient has been tl2 placed in a hallway bed/chair. There are no family/friend visitors at this time Sitter present at this time. 04:15 Safety Checks: Personal items have been removed. The door is open or patient has been tl2 placed in a hallway bed/chair. There are no family/friend visitors at this time Sitter present at this time. 04:30 Safety Checks: Personal items have been removed. The door is open or patient has been tl2 placed in a hallway bed/chair. There are no family/friend visitors at this time Sitter present at this time. 04:45 Safety Checks: Personal items have been removed. The door is open or patient has been tl2 placed in a hallway bed/chair. There are no family/friend visitors at this time Sitter present at this time. 05:00 Safety Checks: Personal items have been removed. The door is open or patient has been tl2 placed in a hallway bed/chair. There are no family/friend visitors at this time Sitter present at this time. 05:15 Safety Checks: Personal items have been removed. The door is open or patient has been tl2 placed in a hallway bed/chair. There are no family/friend visitors at this time Sitter present at this time. 05:30 Safety Checks: Personal items have been removed. The door is open or patient has been tl2 placed in a hallway bed/chair. There are no family/friend visitors at this time Sitter present at this time. 05:45 Safety Checks: Personal items have been removed. The door is open or patient has been tl2 placed in a hallway bed/chair. There are no family/friend visitors at this time Sitter present at this time. 06:00 Safety Checks: Personal items have been removed. The door is open or patient has been tl2 placed in a hallway bed/chair. There are no family/friend visitors at this time Sitter present at this time. 06:15 Safety Checks: Personal items have been removed. The door is open or patient has been tl2 placed in a hallway bed/chair. There are no family/friend visitors at this time Sitter present at this time. 06:30 Safety Checks: Personal items have been removed. The door is open or patient has been tl2 placed in a hallway bed/chair. There are no family/friend visitors at this time Sitter present at this time. 06:45 Safety Checks: Personal items have been removed. The door is open or patient has been tl2 placed in a hallway bed/chair. There are no family/friend visitors at this time Sitter present at this time. 07:00 Safety Checks: Personal items have been removed. The door is open or patient has been tl2 placed in a hallway bed/chair. There are no family/friend visitors at this time Sitter present at this time. 07:00 Report received from Berenice Temple RN. aa5 07:00 Safety checks: Items removed: yes. Door open/sign placed on door: yes. Family/friend ms present: no. Sitter present: Yes. 07:15 Safety Checks: Personal items have been removed. The door is open or patient has been aa5 placed in a hallway bed/chair. There are no family/friend visitors at this time Sitter present at this time. 07:15 Safety checks: Items removed: yes. Door open/sign placed on door: yes. Family/friend ms present: no. Sitter present: Yes. 07:30 Safety Checks: Personal items have been removed. The door is open or patient has been aa5 placed in a hallway bed/chair. There are no family/friend visitors at this time Sitter present at this time. 07:30 Safety checks: Items removed: yes. Door open/sign placed on door: yes. Family/friend ms present: no. Sitter present: Yes. 07:45 Safety Checks: Personal items have been removed. The door is open or patient has been aa5 placed in a hallway bed/chair. There are no family/friend visitors at this time Sitter present at this time. 07:45 Safety checks: Items removed: yes. Door open/sign placed on door: yes. Family/friend ms present: no. Sitter present: Yes. 08:00 Safety Checks: Personal items have been removed. The door is open or patient has been aa5 placed in a hallway bed/chair. There are no family/friend visitors at this time Sitter present at this time. 08:00 Safety checks: Items removed: yes. Door open/sign placed on door: yes. Family/friend ms present: no. Sitter present: Yes. 08:15 Safety checks: Items removed: yes. Door open/sign placed on door: yes. Family/friend ms present: no. Sitter present: Yes. 08:30 Safety checks: Items removed: yes. Door open/sign placed on door: yes. Family/friend ag present: no. Sitter present: Yes. 08:45 Safety checks: Items removed: yes. Door open/sign placed on door: yes. Family/friend ag present: no. Sitter present: Yes. 09:02 Safety checks: Items removed: yes. Door open/sign placed on door: yes. Family/friend ag present: no. Sitter present: Yes. 09:15 Safety checks: Items removed: yes. Door open/sign placed on door: yes. Family/friend ag present: no. Sitter present: Yes. 09:30 Safety checks: Items removed: yes. Door open/sign placed on door: yes. Family/friend ag present: no. Sitter present: Yes. 09:39 spoke with Segundo at [facility], no beds at this time,pt is on waiting list, bd possible discharges later today. 09:47 Safety checks: Items removed: yes. Door open/sign placed on door: yes. Family/friend ag present: no. Sitter present: Yes. 10:04 Safety checks: Items removed: yes. Door open/sign placed on door: yes. Family/friend ag present: no. Sitter present: Yes. 10:15 Safety checks: Items removed: yes. Door open/sign placed on door: yes. Family/friend ag present: no. Sitter present: Yes. 10:33 Safety checks: Items removed: yes. Door open/sign placed on door: yes. Family/friend ag present: no. Sitter present: Yes. 10:45 Safety checks: Items removed: yes. Door open/sign placed on door: yes. Family/friend ag present: no. Sitter present: Yes. 11:00 Safety checks: Items removed: yes. Door open/sign placed on door: yes. Family/friend ag present: no. Sitter present: Yes. 11:15 Safety checks: Items removed: yes. Door open/sign placed on door: yes. Family/friend ag present: no. Sitter present: Yes. 11:30 Safety checks: Items removed: yes. Door open/sign placed on door: yes. Family/friend ag present: no. Sitter present: Yes. 11:45 Safety checks: Items removed: yes. Door open/sign placed on door: yes. Family/friend ag present: no. Sitter present: Yes. 12:00 Safety checks: Items removed: yes. Door open/sign placed on door: yes. Family/friend ag present: no. Sitter present: Yes. 12:15 Safety checks: Items removed: yes. Door open/sign placed on door: yes. Family/friend ag present: no. Sitter present: Yes. 12:31 Safety checks: Items removed: yes. Door open/sign placed on door: yes. Family/friend ag present: no. Sitter present: Yes. 12:45 Safety checks: Items removed: yes. Door open/sign placed on door: yes. Family/friend ag present: no. Sitter present: Yes. 12:58 Safety checks: Items removed: yes. Door open/sign placed on door: yes. Family/friend ag present: no. Sitter present: Yes. 13:15 Safety checks: Items removed: yes. Door open/sign placed on door: yes. Family/friend [email or web address] present: no. Sitter present: Yes. 13:30 Safety checks: Items removed: yes. Door open/sign placed on door: yes. Family/friend [email or web address] present: no. Sitter present: Yes. 13:45 Safety checks: Items removed: yes. Door open/sign placed on door: yes. Family/friend ag present: no. Sitter present: Yes. 14:00 Safety checks: Items removed: yes. Door open/sign placed on door: yes. Family/friend ag present: no. Sitter present: Yes. 14:15 Safety checks: Items removed: yes. Door open/sign placed on door: yes. Family/friend ag present: no. Sitter present: Yes. 14:30 Safety checks: Items removed: yes. Door open/sign placed on door: yes. Family/friend ag present: no. Sitter present: Yes. 14:46 Safety checks: Items removed: yes. Door open/sign placed on door: yes. Family/friend ag present: no. Sitter present: Yes. 15:00 Safety checks: Items removed: yes. Door open/sign placed on door: yes. Family/friend ag present: no. Sitter present: Yes. 15:15 Safety checks: Items removed: yes. Door open/sign placed on door: yes. Family/friend ag present: no. Sitter present: Yes. 15:29 talked to Сергей at [facility], pt is still on waiting list, no more discharges bd today, possibly more discharges tomorrow. 15:32 Safety checks: Items removed: yes. Door open/sign placed on door: yes. Family/friend ag present: no. Sitter present: Yes. Diet: Patient given a regular meal tray. Patient given snack. Patient given ice chips. Patient given juice. Patient given water. Tolerated well. 15:45 Safety checks: Items removed: yes. Door open/sign placed on door: yes. Family/friend ag present: no. Sitter present: Yes. 16:00 Safety checks: Items removed: yes. Door open/sign placed on door: yes. Family/friend ag present: no. Sitter present: Yes. 16:13 Safety checks: Items removed: yes. Door open/sign placed on door: yes. Family/friend ag present: no. Sitter present: Yes. 16:30 Safety checks: Items removed: yes. Door open/sign placed on door: yes. Family/friend ag present: no. Sitter present: Yes. 16:45 Safety checks: Items removed: yes. Door open/sign placed on door: yes. Family/friend ag present: no. Sitter present: Yes. 17:03 Safety checks: Items removed: yes. Door open/sign placed on door: yes. Family/friend ag present: no. Sitter present: Yes. 17:15 Safety checks: Items removed: yes. Door open/sign placed on door: yes. Family/friend ag present: no. Sitter present: Yes. 17:32 Safety checks: Items removed: yes. Door open/sign placed on door: yes. Family/friend ag present: no. Sitter present: Yes. 17:45 Safety checks: Items removed: yes. Door open/sign placed on door: yes. Family/friend ag present: no. Sitter present: Yes. 18:00 Safety checks: Items removed: yes. Door open/sign placed on door: yes. Family/friend ag present: no. Sitter present: Yes. 18:15 Safety checks: Items removed: yes. Door open/sign placed on door: yes. Family/friend ag present: no. Sitter present: Yes. 18:30 Safety checks: Items removed: yes. Door open/sign placed on door: yes. Family/friend ag present: no. Sitter present: Yes. 18:43 Safety checks: Items removed: yes. Door open/sign placed on door: yes. Family/friend ag present: no. Sitter present: Yes. 18:48 Primary Nurse role handed off by Melisa Cameron RN [facility] 18:48 Kay Arboleda RN is Primary Nurse. [facility] 18:58 PHCP role handed off by Marc Vargas PA [facility] 18:58 Santo Clark PA is PHCP. [facility] 19:00 Report given to Yvette Church RN. aa5 19:00 Safety checks: Items removed: yes. Door open/sign placed on door: yes. Family/friend cm6 present: no. Sitter present: Yes. 19:15 Safety checks: Items removed: yes. Door open/sign placed on door: yes. Family/friend cm6 present: no. Sitter present: Yes. 19:30 Safety checks: Items removed: Door open/sign placed on door: yes. Family/friend cm6 present: no. Sitter present: Yes. 19:45 Safety checks: Items removed: yes. Door open/sign placed on door: yes. Family/friend cm6 present: no. Sitter present: Yes. 20:00 Safety checks: Items removed: yes. Door open/sign placed on door: yes. Family/friend cm6 present: no. Sitter present: Yes. 20:15 Safety checks: Items removed: yes. Door open/sign placed on door: yes. Family/friend cm6 present: no. Sitter present: Yes. 20:30 Safety checks: Items removed: yes. Door open/sign placed on door: yes. Family/friend cm6 present: no. Sitter present: Yes. 20:45 Safety checks: Items removed: yes. Door open/sign placed on door: yes. Family/friend cm6 present: no. Sitter present: Yes. 21:00 Safety checks: Items removed: yes. Door open/sign placed on door: yes. Family/friend cm6 present: no. Sitter present: Yes. 21:15 Safety checks: Items removed: yes. Door open/sign placed on door: yes. Family/friend cm6 present: no. Sitter present: Yes. 21:30 Safety checks: Items removed: yes. Door open/sign placed on door: yes. Family/friend cm6 present: no. Sitter present: Yes. 21:45 Safety checks: Items removed: yes. Door open/sign placed on door: yes. Family/friend cm6 present: no. Sitter present: Yes. 22:00 Safety checks: Items removed: yes. Door open/sign placed on door: yes. Family/friend cm6 present: no. Sitter present: Yes. 22:15 Safety checks: Items removed: yes. Door open/sign placed on door: yes. Family/friend oe present: no. Sitter present: Yes. 22:30 Safety checks: Items removed: yes. Door open/sign placed on door: yes. Family/friend cm6 present: no. Sitter present: Yes. 22:45 Safety checks: Items removed: yes. Door open/sign placed on door: yes. Family/friend cm6 present: no. Sitter present: Yes. 23:00 Safety checks: Items removed: yes. Door open/sign placed on door: yes. Family/friend cm6 present: no. Sitter present: Yes. 23:15 Safety checks: Items removed: yes. Door open/sign placed on door: yes. Family/friend cm6 present: no. Sitter present: Yes. 23:30 Safety checks: Items removed: yes. Door open/sign placed on door: yes. Family/friend cm6 present: no. Sitter present: Yes. 23:45 Safety checks: Items removed: yes. Door open/sign placed on door: yes. Family/friend cm6 present: no. Sitter present: Yes. 10/11 00:00 Safety checks: Items removed: yes. Door open/sign placed on door: yes. Family/friend cm6 present: no. Sitter present: Yes. 00:15 Safety checks: Items removed: yes. Door open/sign placed on door: yes. Family/friend cm6 present: no. Sitter present: Yes. 00:30 Safety checks: Items removed: yes. Door open/sign placed on door: yes. Family/friend cm6 present: no. Sitter present: Yes. 00:45 Safety checks: Items removed: yes. Door open/sign placed on door: yes. Family/friend cm6 present: no. Sitter present: Yes. 01:00 Safety checks: Items removed: yes. Door open/sign placed on door: yes. Family/friend cm6 present: no. Sitter present: Yes. 01:15 Safety checks: Items removed: yes. Door open/sign placed on door: yes. Family/friend oe present: no. Sitter present: Yes. 01:30 Safety checks: Items removed: yes. Door open/sign placed on door: yes. Family/friend oe present: no. Sitter present: Yes. 01:45 Safety checks: Items removed: yes. Door open/sign placed on door: yes. Family/friend oe present: no. Sitter present: Yes. 02:00 Safety checks: Items removed: yes. Door open/sign placed on door: yes. Family/friend oe present: no. Sitter present: Yes. 02:15 Safety checks: Items removed: yes. Door open/sign placed on door: yes. Family/friend oe present: no. Sitter present: Yes. 02:30 Safety checks: Items removed: yes. Door open/sign placed on door: yes. Family/friend oe present: no. Sitter present: Yes. 02:45 Safety checks: Items removed: yes. Door open/sign placed on door: yes. Family/friend oe present: no. Sitter present: Yes. 03:00 Safety checks: Items removed: yes. Door open/sign placed on door: yes. Family/friend oe present: no. Sitter present: Yes. 03:15 Safety checks: Items removed: yes. Door open/sign placed on door: yes. Family/friend oe present: no. Sitter present: Yes. 03:30 Safety checks: Items removed: yes. Door open/sign placed on door: yes. Family/friend oe present: no. Sitter present: Yes. 03:45 Safety checks: Items removed: yes. Door open/sign placed on door: yes. Family/friend oe present: no. Sitter present: Yes. 04:00 Safety checks: Items removed: yes. Door open/sign placed on door: yes. Family/friend oe present: no. Sitter present: Yes. 04:15 Safety checks: Items removed: yes. Door open/sign placed on door: yes. Family/friend oe present: no. Sitter present: Yes. 04:30 Safety checks: Items removed: yes. Door open/sign placed on door: yes. Family/friend oe present: no. Sitter present: Yes. 04:45 Safety checks: Items removed: yes. Door open/sign placed on door: yes. Family/friend oe present: no. Sitter present:. 05:00 Safety checks: Items removed: yes. Door open/sign placed on door: yes. Family/friend oe present: no. Sitter present: Yes. 05:15 Safety checks: Items removed: yes. Door open/sign placed on door: yes. Family/friend oe present: no. Sitter present: Yes. 05:30 Safety checks: Items removed: yes. Door open/sign placed on door: yes. Family/friend oe present: no. Sitter present: Yes. 05:48 spoke with patients mother her number is [phone] if ever needing any information. [email or web address] 06:00 Safety checks: Items removed: yes. Door open/sign placed on door: Family/friend aa8 present: yes. no. Sitter present: Yes. 06:15 Safety checks: Items removed: yes. Door open/sign placed on door: yes. Family/friend aa8 present: no. Sitter present: Yes. 06:30 Safety checks: Items removed: yes. Door open/sign placed on door: yes. Family/friend aa8 present: no. Sitter present: Yes. 06:45 Safety checks: Items removed: yes. Door open/sign placed on door: yes. Family/friend jb1 present: no. Sitter present: Yes. 07:00 Safety checks: Items removed: yes. Door open/sign placed on door: yes. Family/friend jb1 present: no. Sitter present: Yes. 07:15 Safety checks: Items removed: yes. Door open/sign placed on door: yes. Family/friend jb1 present: no. Sitter present: Yes. 07:28 Attending Physician role handed off by Delonte Henderson MD kdr 07:28 Heath Calvert MD is Attending Physician. kdr 07:30 Safety checks: Items removed: yes. Door open/sign placed on door: yes. Family/friend jb1 present: no. Sitter present: Yes. 07:45 Safety checks: Items removed: yes. Door open/sign placed on door: yes. Family/friend jb1 present: no. Sitter present: Yes. 08:00 Safety checks: Items removed: yes. Door open/sign placed on door: yes. Family/friend jb1 present: no. Sitter present: Yes. 08:15 Safety checks: Items removed: yes. Door open/sign placed on door: yes. Family/friend jb1 present: no. Sitter present: Yes. 08:30 Safety checks: Items removed: yes. Door open/sign placed on door: yes. Family/friend jb1 present: no. Sitter present: Yes. 08:45 Safety checks: Items removed: yes. Door open/sign placed on door: yes. Family/friend jb1 present: no. Sitter present: Yes. 09:00 Safety checks: Items removed: yes. Door open/sign placed on door: yes. Family/friend jb1 present: no. Sitter present: Yes. 09:15 Safety checks: Items removed: yes. Door open/sign placed on door: yes. Family/friend jb1 present: no. Sitter present: Yes. 09:30 Safety checks: Items removed: yes. Door open/sign placed on door: yes. Family/friend jb1 present: no. Sitter present: Yes. 09:45 Safety checks: Items removed: yes. Door open/sign placed on door: yes. Family/friend jb1 present: no. Sitter present: Yes. 10:00 Safety checks: Items removed: yes. Door open/sign placed on door: yes. Family/friend jb1 present: no. Sitter present: Yes. 10:15 Safety checks: Items removed: yes. Door open/sign placed on door: yes. Family/friend jb1 present: no. Sitter present: Yes. 10:30 Safety checks: Items removed: yes. Door open/sign placed on door: yes. Family/friend jb1 present: no. Sitter present: Yes. 10:45 Safety checks: Items removed: yes. Door open/sign placed on door: yes. Family/friend jb1 present: no. Sitter present:. 11:00 Safety checks: Items removed: yes. Door open/sign placed on door: yes. Family/friend mh5 present: no. Sitter present: Yes. 11:15 Safety checks: Items removed: yes. Door open/sign placed on door: yes. Family/friend mh5 present: no. Sitter present: Yes. 11:30 Safety checks: Items removed: yes. Door open/sign placed on door: yes. Family/friend mh5 present: no. Sitter present: Yes. 11:45 Safety checks: Items removed: yes. Door open/sign placed on door: yes. Family/friend mh5 present: no. Sitter present: Yes. 11:45 Repeat lab(s) drawn. sent to lab. mh5 12:00 Safety checks: Items removed: yes. Door open/sign placed on door: yes. Family/friend mh5 present: no. Sitter present: Yes. 12:15 Safety checks: Items removed: yes. Door open/sign placed on door: yes. Family/friend mh5 present: no. Sitter present: Yes. 12:30 Safety checks: Items removed: yes. Door open/sign placed on door: yes. Family/friend mh5 present: no. Sitter present: Yes. 12:45 Safety checks: Items removed: yes. Door open/sign placed on door: yes. Family/friend mh5 present: no. Sitter present: Yes. 13:00 Safety checks: Items removed: yes. Door open/sign placed on door: yes. Family/friend mh5 present: no. Sitter present: Yes. 13:15 Safety checks: Items removed: yes. Door open/sign placed on door: yes. Family/friend mh5 present: no. Sitter present: Yes. 13:30 Safety checks: Items removed: yes. Door open/sign placed on door: yes. Family/friend jb1 present: no. Sitter present: Yes. 13:45 Safety checks: Items removed: yes. Door open/sign placed on door: yes. Family/friend mh5 present: no. Sitter present: Yes. 14:00 Safety checks: Items removed: yes. Door open/sign placed on door: yes. Family/friend mh5 present: no. Sitter present: Yes. 14:15 Safety checks: Items removed: yes. Door open/sign placed on door: yes. Family/friend mh5 present: no. Sitter present: Yes. 14:30 Safety checks: Items removed: yes. Door open/sign placed on door: yes. Family/friend mh5 present: no. Sitter present: Yes. 14:59 Safety checks: Items removed: yes. Door open/sign placed on door: yes. Family/friend mh5 present: no. Sitter present: Yes. Other: EMS HERE FOR TRANSPORT. Administered Medications: 10/09 11:38 Drug: Zofran 4 mg Route: IVP; Site: left antecubital; ch 13:24 Follow up: Response: No adverse reaction ch 11:38 Drug: Pepcid 20 mg Route: IVP; Site: left antecubital; ch 13:23 Follow up: Response: No adverse reaction; Marked relief of symptoms ch 11:50 Drug: NS 0.9% 1000 ml Route: IV; Rate: 1000 ml; Site: left antecubital; ch 13:00 Follow up: Response: No adverse reaction; IV Status: Completed infusion; IV Intake: tw2 1000ml 13:52 Drug: NS 0.9% 1000 ml Route: IV; Rate: 1 bolus; Site: left antecubital; tw2 15:50 Follow up: Response: No adverse reaction; IV Status: Completed infusion; IV Intake: tw2 1000ml 13:52 Drug: Potassium Effervescent Tablet 50 mEq Route: PO; tw2 14:52 Follow up: Response: No adverse reaction tw2 10/10 21:05 Drug: Tylenol 650 mg Route: PO; aa1 22:05 Follow up: Response: No adverse reaction; Pain is decreased aa1 Intake: 10/09 13:00 IV: 1000ml; Total: 1000ml. tw2 15:50 IV: 1000ml; Total: 2000ml. tw2 Output: 13:53 Urine: 300ml (Voided); Total: 300ml. ag 15:56 Urine: 300ml (Voided); Total: 600ml. ag Outcome: 10/11 13:46 ER care complete, transfer ordered by . kdr 15:02 Patient left the ED. ss Signatures: Trenton Lott Barbara bd Hammond, Christina, RN RN Dominic Anaya, RN RN sg Yvette Hernandez RN RN aa1 Heath Calvert MD MD kdr Mickail, Joel, QUIANA Rodriguez, Nola mr Hunt, Agustina ms Kay Arboleda RN RN aa5 Elda Rosa RN NELSON ss Ileana Baez, RN RN lp1 Eduardo, Taylor Hammer, RN RN ph Marc Vargas, Melisa Snell cp, RN RN 2 Berenice Temple, RN RN 2 Davian Mccormack Maria 5 Tanya Martínez aa8 Sudhakar Collins, RN RN bp Jose Etienne mw2 Rahel Yoder 3 Mehran Antunez jp3 Neal Lui ag4 Ca Grover cm6 Corrections: (The following items were deleted from the chart) 10/09 11:47 11:18 Safety checks: Items removed: no. Reason for not removing items: Door open/sign jp3 placed on door: yes. Family/friend present: no. Sitter present: Yes. jp3 13:56 13:53 Safety checks: Items removed: yes. Door open/sign placed on door: yes. ag Family/friend present: no. Sitter present: Yes. ag 13:56 13:53 Side rails up X 1. Side rails up X2. ag ag 15:10 14:49 Safety checks: Items removed: yes. Door open/sign placed on door: yes. ag Family/friend present: no. Sitter present: Yes. ag 18 12:04 11:57 Safety checks: Items removed: yes. Door open/sign placed on door: yes. ag Family/friend present: no. Sitter present: Yes. ag 18:28 16:11 BP 90 / 55 Supine Auto R Arm Regular; Pulse 16bpm; Resp 69bpm; Pulse Ox 98% RA; agag 19:07 19:04 Safety checks: Items removed: Door open/sign placed on door: Family/friend cm6 present: no. Sitter present: Yes. cm6 19:07 19:04 Patient has correct armband on for positive identification. cm6 cm6 19:08 19:04 Safety checks: Items removed: Door open/sign placed on door: Family/friend cm6 present: no. Sitter present: Yes. cm6 19:08 19:00 Safety checks: Items removed: yes. Door open/sign placed on door: yes. cm6 Family/friend present: no. Sitter present: Yes. cm6 22:46 22:30 Safety checks: Items removed: yes. Door open/sign placed on door: yes. cm6 Family/friend present: no. Sitter present: Yes. oe 10/11 00:31 00:27 Safety checks: Items removed: yes. Door open/sign placed on door: yes. cm6 Family/friend present: no. Sitter present: Yes. cm6 08:47 08:29 Safety checks: Items removed: yes. Door open/sign placed on door: yes. jb1 Family/friend present: no. Sitter present: Yes. jb1
--- NOTE | 2018-10-11 13:47 | EDPHYS ---
Physician Documentation [facility] Name: Vaughn Quintero II Age: 33 yrs Sex: Male : 1985 Arrival Date: 10/09/2018 Time: 10:49 Bed 8 Private MD: ED Physician Heath Calvert HPI: 10/09 11:30 This 33 yrs old Male presents to ER via Ambulatory with complaints of cp Suicidal Ideation, Homicidal Ideation. 11:30 The patient presents to the emergency department with a history of a suicide gesture, cp where the patient took pills/medications, psych meds 5 days ago in attempt to overdose, suicide ideation, and the patient has a plan, to walk into a car. Past psychiatric history: Prior diagnosis: schizophrenia, Psychiatric medications include: Seroquel, the patient has a previous inpatient psychiatric history, 10 year(s) ago. Associated signs and symptoms: Pertinent positives; pain all over. Historical: - Allergies: 11:01 ketorolac tromethamine; tw2 11:01 PENICILLINS; tw2 11:01 Sulfa (Sulfonamide Antibiotics); tw2 11:01 Tramadol HCl; tw2 - PMHx: 11:01 Chronic pain; tw2 - PSHx: 11:01 left ankle; shoulder; tw2 - Immunization history:: Adult Immunizations. - Social history:: Smoking status: . - Ebola Screening: : Patient denies travel to an Ebola-affected area in the 21 days before illness onset. ROS: 11:35 Constitutional: Negative for body aches, chills, fever, poor PO intake. cp 11:35 Eyes: Negative for injury, pain, redness, and discharge. cp 11:35 ENT: Negative for drainage from ear(s), ear pain, sore throat, difficulty swallowing, difficulty handling secretions. 11:35 Cardiovascular: Negative for chest pain, palpitations. 11:35 Respiratory: Negative for cough, shortness of breath, wheezing. 11:35 Abdomen/GI: Positive for nausea, Negative for vomiting, diarrhea, constipation, black/tarry stool, rectal bleeding. 11:35 Back: Negative for injury or acute deformity. 11:35 : Negative for urinary symptoms, testicular pain 11:35 MS/extremity: Positive for pain all over, Negative for injury or acute deformity, decreased range of motion. 11:35 Skin: Negative for cellulitis, rash. 11:35 Neuro: Negative for altered mental status, headache, weakness. 11:35 Psych: Positive for suicide gesture, suicidal ideation. 11:35 All other systems are negative. Exam: 11:40 Constitutional: The patient appears in no acute distress, alert, awake, non-toxic, well cp developed, well nourished, unkempt. 11:40 Head/Face: Normocephalic, atraumatic. cp 11:40 Eyes: Periorbital structures: appear normal, Conjunctiva: normal, no exudate, no injection, Lids and lashes: appear normal, bilaterally. 11:40 ENT: External ear(s): are unremarkable, Nose: is normal, Mouth: Lips: moist, Oral mucosa: moist, Posterior pharynx: Airway: no evidence of obstruction, patent. 11:40 Neck: ROM/movement: is normal, is supple, without pain, no range of motions limitations, no nuchal rigidity. 11:40 Chest/axilla: Inspection: normal, Palpation: is normal, no crepitus, no tenderness. 11:40 Cardiovascular: Rate: normal, Rhythm: regular. 11:40 Respiratory: the patient does not display signs of respiratory distress, Respirations: normal, no use of accessory muscles, no retractions, no splinting, no tachypnea, labored breathing, is not present, Breath sounds: are clear throughout, no decreased breath sounds, no stridor, no wheezing. 11:40 Abdomen/GI: Inspection: abdomen appears normal, Palpation: abdomen is soft and non-tender, in all quadrants, rebound tenderness, is not appreciated, voluntary guarding, is not appreciated, involuntary guarding, is not appreciated. 11:40 Neuro: Orientation: to person, place \T\ time. Mentation: is normal, Cerebellar function: is grossly normal, Motor: moves all fours, strength is normal, Sensation: is normal. 11:40 Psych: Behavior/mood is cooperative, Affect is calm, Patient having thoughts of suicide. Plan for suicide is walk in front of car Judgement / Insight is normal. Delusions/hallucinations are not present. 11:55 ECG was reviewed by the Attending Physician. cp Vital Signs: 10:56 BP 111 / 69; Pulse 74; Resp 16; Temp 97; Pulse Ox 97% ; Weight 58.97 kg; Height 5 ft. 2 bp in. (157.48 cm); 11:05 BP 109 / 69; Pulse 64; Resp 17; Pulse Ox 99% on R/A; jp3 12:03 BP 92 / 54; Pulse 58; Resp 14; Temp 97.8; Pulse Ox 99% on R/A; Pain 0/10; ch 15:56 BP 103 / 68 RA Sitting (auto/lg); Pulse 77; Resp 16; Pulse Ox 98% on R/A; ag 22:00 BP 115 / 88; Pulse 81; Resp 14; Temp 97.9(O); Pulse Ox 100% on R/A; ag4 06/18 08:05 BP 112 / 72; Pulse 64; Resp 16 S; Temp 97.6(O); Pulse Ox 99% on R/A; Pain 0/10; aa5 12:31 BP 99 / 63; Pulse 79; Resp 16; Pulse Ox 100% on R/A; ag 16:11 BP 90 / 55 RA Supine (auto/reg); Pulse 69; Resp 16; Pulse Ox 98% on R/A; ag 18:41 BP 101 / 62 LA Supine (auto/reg); Pulse 70; Resp 18; Pulse Ox 100% on R/A; ag 19:45 BP 108 / 57; Pulse 79; Resp 18; Temp 98.1; Pulse Ox 99% ; Pain 0/10; cm6 21:36 BP 109 / 67; Pulse 84; Resp 18; Temp 98.2; Pulse Ox 99% ; Pain 0/10; cm6 06/19 00:00 BP 95 / 64; Pulse 50; Resp 18; Temp 98.1; Pulse Ox 99% ; Pain 0/10; cm6 02:00 BP 106 / 60; Pulse 57; Resp 16; Temp 97.9(O); Pulse Ox 100% on R/A; oe 04:05 BP 103 / 69; Pulse 61; Resp 18; Temp 98(O); Pulse Ox 100% on R/A; oe 06:00 BP 104 / 66; Pulse 61; aa8 06:00 BP 104 / 66; Pulse 61; Resp 18; Temp 98.1; Pulse Ox 100% ; aa8 08:03 BP 110 / 59; Pulse 69; Resp 17; Pulse Ox 99% on R/A; jb1 10:08 BP 107 / 62; Pulse 65; Resp 17; Pulse Ox 100% on R/A; jb1 14:15 BP 98 / 61; Pulse 72; Resp 16; Temp 97.8(O); Pulse Ox 99% on R/A; mh5 10/09 10:56 Body Mass Index 23.78 (58.97 kg, 157.48 cm) bp MDM: 10/09 11:10 Patient medically screened. 13:45 Data reviewed: vital signs, nurses notes, lab test result(s), EKG. cp 13:45 Test interpretation: by ED physician or midlevel provider: ECG. cp 18:34 ED course: VSS. Patient sleeping in exam room. 10/10 02:22 ED course: Patient resting comfortable in exam room. No acute distress or agitation. jr8 Has not required and recent medication. Still attempting transfer for SI. 07:41 ED course: VSS. Patient sleeping in exam room. 10/11 02:52 Transition of care: After a detail discussion of the patient's case, care is jmm transferred to Cholo Patton MD. 13:58 ED course: D/w Dr. Cortes and Kassandra at [facility] have accepted the patient in kdr transfer. 10/09 11:21 Order name: Acetaminophen 10/09 11:21 Order name: Basic Metabolic Panel 10/09 11:21 Order name: CBC with Diff; Complete Time: 12:22 10/09 12:21 Interpretation: Normal except: RBC 4.20; HGB 11.8; HCT 36.1; PLT 421; RDW 15.6. 10/09 11:21 Order name: ETOH Level; Complete Time: 12:22 10/09 12:51 Interpretation: Reviewed. 10/09 11:21 Order name: Hepatic Function; Complete Time: 13:41 10/09 13:41 Interpretation: Normal except: AST 14; TP 6.3. 10/09 11:21 Order name: PT-INR; Complete Time: 12:22 10/09 11:21 Order name: Ptt, Activated; Complete Time: 12:22 10/09 11:21 Order name: Salicylate; Complete Time: 12:51 10/09 12:51 Interpretation: Reviewed. 10/09 11:21 Order name: Urine Drug Screen; Complete Time: 13:41 cp 10/09 13:41 Interpretation: Abnormal: THC POSITIVE. 10/09 11:24 Order name: Acetaminophen Level; Complete Time: 13:41 EDMS 10/09 11:24 Order name: Basic Metabolic Panel; Complete Time: 13:41 EDMS 10/09 13:41 Interpretation: Normal except: K 3.1. 10/09 12:26 Order name: Urine Dipstick--Ancillary (enter results); Complete Time: 12:51 bd 10/09 12:51 Interpretation: Reviewed. 10/11 11:21 Order name: Potassium; Complete Time: 13:38 ms 10/09 11:21 Order name: EKG; Complete Time: 11:25 cp 10/09 11:21 Order name: EKG - Nurse/Tech; Complete Time: 11:36 cp 10/09 11:21 Order name: IV Saline Lock; Complete Time: 11:36 cp 10/09 11:21 Order name: Labs collected and sent; Complete Time: 11:36 cp 10/09 11:21 Order name: Urine Dipstick-Ancillary (obtain specimen); Complete Time: 12:19 cp 10/09 11:37 Order name: Diet Ada 2000 Don; Complete Time: 11:40 ch 10/09 16:39 Order name: Diet Finger Food; Complete Time: 16:41 bd 10/10 07:01 Order name: Diet Finger Food; Complete Time: 07:03 bd 10/10 11:10 Order name: Diet Regular; Complete Time: 11:13 ag 10/11 07:20 Order name: Diet Finger Food; Complete Time: 07:21 ph 10/11 11:14 Order name: Diet Finger Food; Complete Time: 11:15 mh5 EC/17 11:55 Rate is 65 beats/min. Rhythm is regular. WV interval is normal. QRS interval is normal. cp QT interval is normal. T waves are Flattened in lead aVL. Interpreted by me. Reviewed by me. Administered Medications: 11:38 Drug: Zofran 4 mg Route: IVP; Site: left antecubital; ch 13:24 Follow up: Response: No adverse reaction ch 11:38 Drug: Pepcid 20 mg Route: IVP; Site: left antecubital; ch 13:23 Follow up: Response: No adverse reaction; Marked relief of symptoms ch 11:50 Drug: NS 0.9% 1000 ml Route: IV; Rate: 1000 ml; Site: left antecubital; ch 13:00 Follow up: Response: No adverse reaction; IV Status: Completed infusion; IV Intake: tw2 1000ml 13:52 Drug: NS 0.9% 1000 ml Route: IV; Rate: 1 bolus; Site: left antecubital; tw2 15:50 Follow up: Response: No adverse reaction; IV Status: Completed infusion; IV Intake: tw2 1000ml 13:52 Drug: Potassium Effervescent Tablet 50 mEq Route: PO; tw2 14:52 Follow up: Response: No adverse reaction tw2 10/10 21:05 Drug: Tylenol 650 mg Route: PO; aa1 22:05 Follow up: Response: No adverse reaction; Pain is decreased aa1 Disposition: 10/11 13:45 Co-signature as Attending Physician, Heath Calvert MD I agree with the assessment and kdr plan of care. Disposition: 10/11/18 13:46 Transfer ordered to Psych Facility. Diagnosis is Suicidal/Homicial Ideation. - Reason for transfer: Higher level of care. - Accepting physician is DR Cortes/ [facility]. - Condition is Fair. - Problem is an acute exacerbation. - Symptoms have improved. Signatures: Dispatcher [employer] EDAllie Gonzalez RN RN Yvette Hernandez RN RN aa1 Heath Calvert MD MD [facility] Santo Clark PA PA jmm Smirch, Shelby, RN RN Charles Perez PA PA 8 Marc Vargas PA PA cp Wise, Tara, RN RN tw2 Corrections: (The following items were deleted from the chart) 15:02 13:46 10/11/2018 13:46 Transfer ordered to Psych Facility. Diagnosis is ss Suicidal/Homicial Ideation. Reason for transfer: Higher level of care. Accepting physician is DR Cortes/ [facility]. Condition is Fair. Problem is an acute exacerbation. Symptoms have improved. kdr
[2018-10-11 15:45] VITALS: BP 98/61; TEMP 97.8; O2SAT 99
== END 2018-10-11 15:02 ==
LOC: ER 10:43
DX: R45.851 Suicidal ideations (principal); R45.850 Homicidal ideations; F20.9 Schizophrenia, unspecified; Z88.6 Allergy status to analgesic agent; Z88.5 Allergy status to narcotic agent; Z88.0 Allergy status to penicillin; Z88.2 Allergy status to sulfonamides
CPT/HCPCS: 36415; 80048; 80076; 80307; 80320; 80329; 81003; 84132; 85025; 85610; 85730; 93005; 96361; 96374; 96375; 99285; J2405; J7030

== ENCOUNTER 2018-10-20 17:43 | Emergency (ER) | payer SELFPAY ==
--- OUTSIDE RECORDS SUMMARY | 2018-10-20 17:46 | XMS REPORT ---
:1985 [facility] Address [address] [place] [address] Care Team Providers Name Role Phone UNKNOWN, [...] Range Comments RPR (test code=RPR) Non-Reactive Non-Reactive [id number] 02:45:00 Test Item Value Reference Range Comments [...] (test <0.01 g/dL 0.00-0.01 code=ETOHU) Comprehensive Metabolic [id number] 00:44:00 Test Item Value Reference Range Comments [...] race is not provided, and the patient isAfrican-Scottish, multiply by 1.212. If sex is not [...] the National Kidney Foundation,http://nkdep.nih .gov CBC with [id number] 00:26:00 Test Item Value Reference Range Comments [...] Lymph Abs (test code=ALYMPH) 4.2 K/cumm 0.5-4.6 [place] Abs (test code=AMONO) 0.5 K/cumm 0.0-1.2 Eos Abs (test code=AEOS) 0.64 K/cumm 0.00-0.74 Baso Abs (test code=ABASO) 0.1 K/cumm 0.00-0.21 Urinalysis [id number] 00:19:00 Test Item Value Reference Range Comments Color (test code=COLOR) Yellow Yellow,Straw,Pl yellow Clarity (test code=CLAR) Clear Clear Specific [place] (test code=SPGR) 1.008 1.001-1.035 pH (test code=PH) [...]
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
[2018-10-20 20:22] VITALS: BP 120/64; TEMP 98.5; O2SAT 89
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
== END 2018-10-20 18:24 | disposition left against medical advice (07) ==
LOC: ER 17:43
DX: R56.9 Unspecified convulsions (principal); S40.812A Abrasion of left upper arm, initial encounter; S40.811A Abrasion of right upper arm, initial encounter; S80.812A Abrasion, left lower leg, initial encounter; S80.811A Abrasion, right lower leg, initial encounter; G89.29 Other chronic pain; Z72.0 Tobacco use; Z88.0 Allergy status to penicillin; Z88.2 Allergy status to sulfonamides; Z88.5 Allergy status to narcotic agent; Z88.8 Allergy status to other drugs, medicaments and biological substances
CPT/HCPCS: 99284

== ENCOUNTER 2018-10-27 08:02 | Emergency (ER) | payer SELFPAY ==
--- OUTSIDE RECORDS SUMMARY | 2018-10-27 08:06 | XMS REPORT ---
:1985 Author Organization [facility] Address [address] [place] [address] Care Team Providers Name Role Phone UNKNOWN, [...] Range Comments RPR (test code=RPR) Non-Reactive Non-Reactive [id number] 02:45:00 Test Item Value Reference Range Comments [...] (test <0.01 g/dL 0.00-0.01 code=ETOHU) Comprehensive Metabolic [id number] 00:44:00 Test Item Value Reference Range Comments [...] race is not provided, and the patient isAfrican-Montserratian, multiply by 1.212. If sex is not [...] the National Kidney Foundation,http://nkdep.nih .gov CBC with [id number] 00:26:00 Test Item Value Reference Range Comments [...] Lymph Abs (test code=ALYMPH) 4.2 K/cumm 0.5-4.6 [place] Abs (test code=AMONO) 0.5 K/cumm 0.0-1.2 Eos Abs (test code=AEOS) 0.64 K/cumm 0.00-0.74 Baso Abs (test code=ABASO) 0.1 K/cumm 0.00-0.21 Urinalysis [id number] 00:19:00 Test Item Value Reference Range Comments Color (test code=COLOR) Yellow Yellow,Straw,Pl yellow Clarity (test code=CLAR) Clear Clear Specific [place] (test code=SPGR) 1.008 1.001-1.035 pH (test code=PH) [...]
[2018-10-27 08:40] LABS: Absolute Lymphocytes (CBC) 2.2 K/uL (0.7-4.9); Basophils % 1.1 % (0-1.3); Hematocrit 36.8 % (39.6-49.0); Lymphocytes % 18.1 % (15.3-44.8); Monocytes % 8.8 % (3.3-12.3); RBC Red Blood Cell Count 4.28 M/uL (4.33-5.43)
[2018-10-27] MEDS ORDERED: NA CHLORIDE 0.9% 1,000 ML ONE (08:48)
[2018-10-27 08:57] LABS: ALT/SGPT 44 U/L (12-78); AST/SGOT 29 U/L (15-37); Albumin 3.5 g/dL (3.4-5.0); Alkaline Phosphatase 83 U/L (45-117); BUN Blood Urea Nitrogen 7 mg/dL (7-18); Bicarbonate 31 mmol/L (21-32); Bilirubin Direct < 0.1 mg/dL (0-0.2); Bilirubin Total 0.2 mg/dL (0.2-1.0); Glucose Level 80 mg/dL (74-106); Lipase 142 U/L (73-393); Potassium 3.6 mmol/L (3.5-5.1); Protein, Total 6.7 g/dL (6.4-8.2); Sodium Level 142 mmol/L (136-145)
--- NOTE | 2018-10-27 09:16 | RAD REPORT ---
EXAM DESCRIPTION: RAD - Abdomen 1 View (KUB) - 10/27/2018 8:44 am CLINICAL HISTORY: Abdomen pain. FINDINGS: Air is present within nondilated small bowel in a nonspecific fashion. A large amount of stool is present throughout the colon. No significant abnormal calcification noted
--- NOTE | 2018-10-27 09:46 | EDPHYS ---
Physician Documentation [facility] Name: Vaughn Quintero II Age: 33 yrs Sex: Male : 1985 Arrival Date: 10/27/2018 Time: 08:04 Bed 13 Private MD: ED Physician Marc Davalos HPI: 10/27 09:40 This 33 yrs old Male presents to ER via Ambulatory with complaints of Bloody luoisa Stools, Constipation. 09:40 The patient presents with abdominal pain in the upper abdomen, in the lower abdomen. louisa Onset: The symptoms/episode began/occurred 30 day(s) ago. The symptoms do not radiate. Historical: - Allergies: 08:17 ketorolac tromethamine; iw 08:17 PENICILLINS; iw 08:17 Sulfa (Sulfonamide Antibiotics); iw 08:17 Tramadol HCl; iw - PMHx: 08:17 Chronic pain; iw - PSHx: 08:17 left ankle; shoulder; iw - Immunization history:: Adult Immunizations up to date. - Social history:: Smoking status: Patient uses tobacco products, smokes one-half pack cigarettes per day. - Ebola Screening: : Patient negative for fever greater than or equal to 101.5 degrees Fahrenheit, and additional compatible Ebola Virus Disease symptoms Patient denies exposure to infectious person Patient denies travel to an Ebola-affected area in the 21 days before illness onset No symptoms or risks identified at this time. ROS: 09:41 Constitutional: Negative for fever, chills, and weight loss, Eyes: Negative for injury, louisa pain, redness, and discharge, ENT: Negative for injury, pain, and discharge, Neck: Negative for injury, pain, and swelling, Cardiovascular: Negative for chest pain, palpitations, and edema, Respiratory: Negative for shortness of breath, cough, wheezing, and pleuritic chest pain, Back: Negative for injury and pain, : Negative for injury, bleeding, discharge, and swelling, MS/Extremity: Negative for injury and deformity, Skin: Negative for injury, rash, and discoloration, Neuro: Negative for headache, weakness, numbness, tingling, and seizure, Psych: Negative for depression, anxiety, suicide ideation, homicidal ideation, and hallucinations, Allergy/Immunology: Negative for hives, rash, and allergies, Endocrine: Negative for neck swelling, polydipsia, polyuria, polyphagia, and marked weight changes, Hematologic/Lymphatic: Negative for swollen nodes, abnormal bleeding, and unusual bruising. 09:41 Abdomen/GI: Positive for abdominal pain, rectal bleeding. Exam: 09:41 Constitutional: This is a well developed, well nourished patient who is awake, alert, louisa and in no acute distress. Head/Face: Normocephalic, atraumatic. Eyes: Pupils equal round and reactive to light, extra-ocular motions intact. Lids and lashes normal. Conjunctiva and sclera are non-icteric and not injected. Cornea within normal limits. Periorbital areas with no swelling, redness, or edema. ENT: Nares patent. No nasal discharge, no septal abnormalities noted. Tympanic membranes are normal and external auditory canals are clear. Oropharynx with no redness, swelling, or masses, exudates, or evidence of obstruction, uvula midline. Mucous membranes moist. Neck: Trachea midline, no thyromegaly or masses palpated, and no cervical lymphadenopathy. Supple, full range of motion without nuchal rigidity, or vertebral point tenderness. No Meningismus. Chest/axilla: Normal chest wall appearance and motion. Nontender with no deformity. No lesions are appreciated. Cardiovascular: Regular rate and rhythm with a normal S1 and S2. No gallops, murmurs, or rubs. Normal PMI, no JVD. No pulse deficits. Respiratory: Lungs have equal breath sounds bilaterally, clear to auscultation and percussion. No rales, rhonchi or wheezes noted. No increased work of breathing, no retractions or nasal flaring. Back: No spinal tenderness. No costovertebral tenderness. Full range of motion. Male : Normal genitalia with no discharge or lesions. Skin: Warm, dry with normal turgor. Normal color with no rashes, no lesions, and no evidence of cellulitis. MS/ Extremity: Pulses equal, no cyanosis. Neurovascular intact. Full, normal range of motion. Neuro: Awake and alert, GCS 15, oriented to person, place, time, and situation. Cranial nerves II-XII grossly intact. Motor strength 5/5 in all extremities. Sensory grossly intact. Cerebellar exam normal. Normal gait. Psych: Awake, alert, with orientation to person, place and time. Behavior, mood, and affect are within normal limits. 09:41 Abdomen/GI: Inspection: abdomen appears normal, Bowel sounds: normal, Palpation: abdomen is soft and non-tender, Rectal exam: is unremarkable, rectal tone normal, Stool: normal, guaiac negative, hemorrhoid(s), are not appreciated, mass, is not appreciated, swelling, is not appreciated, tenderness, is not appreciated, Liver: no appreciated palpable abnormalities, Hernia: not appreciated. Vital Signs: 08:18 BP 118 / 83; Pulse 94; Resp 16 S; Temp 98.2; Pulse Ox 99% on R/A; Weight 58.97 kg; iw Height 5 ft. 2 in. (157.48 cm); Pain 0/10; 09:30 BP 114 / 70; Pulse 78; Resp 16; Temp 98.2(O); Pulse Ox 99% on R/A; Pain 3/10; ls4 10:05 BP 116 / 82; Pulse 74; Resp 14; Temp 98.3(O); Pulse Ox 99% on R/A; Pain 3/10; ls4 08:18 Body Mass Index 23.78 (58.97 kg, 157.48 cm) iw MDM: 08:16 Patient medically screened. [facility] 09:41 Data reviewed: vital signs, nurses notes, lab test result(s), radiologic studies, plain louisa films. 10/27 08:17 Order name: Basic Metabolic Panel; Complete Time: 09:40 [facility] 10/27 08:17 Order name: CBC with Diff; Complete Time: 09:40 [facility] 10/27 08:17 Order name: Creatinine for Radiology; Complete Time: 09:40 [facility] 10/27 08:17 Order name: Hepatic Function; Complete Time: 09:40 [facility] 10/27 08:17 Order name: Lipase; Complete Time: 09:40 [facility] 10/27 09:41 Order name: Occult Blood--Ancillary 10/27 08:17 Order name: IV Saline Lock; Complete Time: 08:30 [facility] 10/27 08:17 Order name: Labs collected and sent; Complete Time: 08:30 [facility] 10/27 08:17 Order name: Urine Dipstick-Ancillary (obtain specimen); Complete Time: 09:48 [facility] 10/27 08:17 Order name: Abdomen 1 View (KUB) XRAY; Complete Time: 09:40 [facility] 10/27 09:54 Order name: Urine Dipstick--Ancillary (enter results) eb Administered Medications: 08:36 Drug: NS 0.9% 1000 ml Route: IV; Rate: 1 bolus; Site: right antecubital; ls4 10:09 Follow up: IV Status: Completed infusion; IV Intake: 1000ml ls4 Disposition: 10/27/18 09:45 Discharged to Home. Impression: Abdominal tenderness, Constipation, Gastrointestinal hemorrhage, unspecified - lower, stable. - Condition is Stable. - Discharge Instructions: Abdominal Pain, Adult, Constipation, Adult, Abdominal Pain, Adult, [id number]. - Prescriptions for Bentyl 20 mg Oral Tablet - take 1 tablet by ORAL route every 6 hours As needed; 20 tablet. Pepcid 20 mg Oral Tablet - take 1 tablet by ORAL route every 12 hours for 10 days; 20 tablet. Cipro 500 mg Oral Tablet - take 1 tablet by ORAL route every 12 hours for 7 days; 14 tablet. Miralax 17 gram/dose Oral - take 1 packet by ORAL route every 12 hours dilute powder in 8 ounces of water or juice; 14 packet. - Medication Reconciliation Form, Thank You Letter, Antibiotic Education, Prescription Opioid Use form. - Follow up: Private Physician; When: 2 - 3 days; Reason: Recheck today's complaints, Continuance of care, Re-evaluation by your physician. Follow up: Pedro Lindsey MD; When: 2 - 3 days; Reason: Recheck today's complaints, Re-evaluation by your physician. - Problem is new. - Symptoms have improved. Signatures: Dispatcher [employer] EDDE Marc Davalos MD MD cha Williams, Irene, RN RN iw Suri Kim RN RN ls4 Corrections: (The following items were deleted from the chart) 10:19 09:45 10/27/2018 09:45 Discharged to Home. Impression: Abdominal tenderness; ls4 Constipation; Gastrointestinal hemorrhage, unspecified - lower, stable. Condition is Stable. Forms are Medication Reconciliation Form, Thank You Letter, Antibiotic Education, Prescription Opioid Use. Follow up: Private Physician; When: 2 - 3 days; Reason: Recheck today's complaints, Continuance of care, Re-evaluation by your physician. Follow up: Pedro Lindsey; When: 2 - 3 days; Reason: Recheck today's complaints, Re-evaluation by your physician. Problem is new. Symptoms have improved. louisa
--- NOTE | 2018-10-27 09:46 | ER ---
Nurse's Notes [facility] Name: Vaughn Quintero II Age: 33 yrs Sex: Male : 1985 Arrival Date: 10/27/2018 Time: 08:04 Bed 13 Private MD: Diagnosis: Abdominal tenderness;Constipation;Gastrointestinal hemorrhage, unspecified-lower, stable Presentation: 10/27 08:14 Presenting complaint: Patient states: c/o blood in stool, stomach pain, heart burn for iw a few months now, last BM was this morning and was "normal" but had bright red blood in it, denies pain at this time. Transition of care: patient was not received from another setting of care. Onset of symptoms was July 2018. Risk Assessment: Do you want to hurt yourself or someone else? Patient reports no desire to harm self or others. Initial Sepsis Screen: Does the patient meet any 2 criteria? No. Patient's initial sepsis screen is negative. Does the patient have a suspected source of infection? No. Patient's initial sepsis screen is negative. Care prior to arrival: None. 08:14 Method Of Arrival: Ambulatory iw 08:14 Acuity: KARTIK 3 iw Triage Assessment: 08:49 General: Appears in no apparent distress. comfortable, Behavior is calm, cooperative, ls4 Smells of. Neuro: No deficits noted. Cardiovascular: No deficits noted. Respiratory: No deficits noted. Historical: - Allergies: 08:17 ketorolac tromethamine; iw 08:17 PENICILLINS; iw 08:17 Sulfa (Sulfonamide Antibiotics); iw 08:17 Tramadol HCl; iw - PMHx: 08:17 Chronic pain; iw - PSHx: 08:17 left ankle; shoulder; iw - Immunization history:: Adult Immunizations up to date. - Social history:: Smoking status: Patient uses tobacco products, smokes one-half pack cigarettes per day. - Ebola Screening: : Patient negative for fever greater than or equal to 101.5 degrees Fahrenheit, and additional compatible Ebola Virus Disease symptoms Patient denies exposure to infectious person Patient denies travel to an Ebola-affected area in the 21 days before illness onset No symptoms or risks identified at this time. Screenin:37 Abuse screen: Denies threats or abuse. Denies injuries from another. Nutritional ls4 screening: No deficits noted. Tuberculosis screening: No symptoms or risk factors identified. Fall Risk None identified. Assessment: 08:37 Pain: Denies pain. GI: No deficits noted. Reports constipation, diarrhea, bloody stool. ls4 09:37 Reassessment: Patient appears in no apparent distress at this time. Patient and/or ls4 family updated on plan of care and expected duration. Pain level reassessed. Patient is alert, oriented x 3, equal unlabored respirations, skin warm/dry/pink. pt occult blood negative. Vital Signs: 08:18 BP 118 / 83; Pulse 94; Resp 16 S; Temp 98.2; Pulse Ox 99% on R/A; Weight 58.97 kg; iw Height 5 ft. 2 in. (157.48 cm); Pain 0/10; 09:30 BP 114 / 70; Pulse 78; Resp 16; Temp 98.2(O); Pulse Ox 99% on R/A; Pain 3/10; ls4 10:05 BP 116 / 82; Pulse 74; Resp 14; Temp 98.3(O); Pulse Ox 99% on R/A; Pain 3/10; ls4 08:18 Body Mass Index 23.78 (58.97 kg, 157.48 cm) iw ED Course: 08:04 Patient arrived in ED. rg4 08:08 Suri Kim, RN is Primary Nurse. ls4 08:16 Triage completed. iw 08:16 Marc Davalos MD is Attending Physician. louisa 08:18 Arm band placed on. iw 08:25 Patient has correct armband on for positive identification. Bed in low position. Call ls4 light in reach. Side rails up X 1. 08:25 Pulse ox on. NIBP on. ls4 08:27 No provider procedures requiring assistance completed. Initial lab(s) drawn, by id, ls4 sent to lab. Inserted saline lock: 20 gauge in right antecubital area, using aseptic technique. Blood collected. 08:48 Abdomen 1 View (KUB) XRAY In Process Unspecified. EDMS 09:44 Pedro Lindsey MD is Referral Physician. louisa 09:47 Urine collected: clean catch specimen, clear, jamie colored. jb1 10:10 IV discontinued, intact, bleeding controlled, No redness/swelling at site. Pressure ls4 dressing applied. Administered Medications: 08:36 Drug: NS 0.9% 1000 ml Route: IV; Rate: 1 bolus; Site: right antecubital; ls4 10:09 Follow up: IV Status: Completed infusion; IV Intake: 1000ml ls4 Intake: 10:09 IV: 1000ml; Total: 1000ml. ls4 Outcome: 09:45 Discharge ordered by MD. jasso 10:18 Discharged to home ambulatory. ls4 10:18 Condition: good 10:18 Discharge instructions given to patient, Instructed on discharge instructions, follow up and referral plans. medication usage, safety practices, Demonstrated understanding of instructions, follow-up care, medications, Prescriptions given X 4. 10:19 Patient left the ED. ls4 Signatures: Dispatcher [employer] EDMS Trenton Lott jb1 Marc Davalos MD MD cha Williams, Irene, RN Leticia Rizzo4 Suri Kim RN RN ls4
[2018-10-27 10:26] VITALS: BP 118/83; TEMP 98.2; O2SAT 99
[2018-10-27 11:41] LABS: Urine Blood NEGATIVE (NEG); Urine Glucose NEGATIVE (NEG); Urine Protein NEGATIVE (NEG); Urine Specific Gravity 1.015 (1.005-1.030); Urine pH 8.5 (5.0-7.0)
== END 2018-10-27 10:19 | disposition home or self-care (01) ==
LOC: ER 08:02
DX: K59.00 Constipation, unspecified (principal); K92.2 Gastrointestinal hemorrhage, unspecified; F17.210 Nicotine dependence, cigarettes, uncomplicated; Z88.0 Allergy status to penicillin; Z88.2 Allergy status to sulfonamides; Z88.5 Allergy status to narcotic agent; Z88.8 Allergy status to other drugs, medicaments and biological substances
CPT/HCPCS: 36415; 74018; 80048; 80076; 81003; 82272; 83690; 85025; 96360; 96361; 99284; J7030

== ENCOUNTER 2018-11-02 11:38 | Emergency (ER) | payer SELFPAY ==
--- OUTSIDE RECORDS SUMMARY | 2018-11-02 12:15 | XMS REPORT ---
:1985 [facility] Address [address] [place] [address] Care Team Providers Name Role Phone UNKNOWN, [...] Range Comments RPR (test code=RPR) Non-Reactive Non-Reactive [id number] 02:45:00 Test Item Value Reference Range Comments [...] (test <0.01 g/dL 0.00-0.01 code=ETOHU) Comprehensive Metabolic [id number] 00:44:00 Test Item Value Reference Range Comments [...] race is not provided, and the patient isAfrican-Italian, multiply by 1.212. If sex is not [...] the National Kidney Foundation,http://nkdep.nih .gov CBC with [id number] 00:26:00 Test Item Value Reference Range Comments [...] Lymph Abs (test code=ALYMPH) 4.2 K/cumm 0.5-4.6 [place] Abs (test code=AMONO) 0.5 K/cumm 0.0-1.2 Eos Abs (test code=AEOS) 0.64 K/cumm 0.00-0.74 Baso Abs (test code=ABASO) 0.1 K/cumm 0.00-0.21 Urinalysis [id number] 00:19:00 Test Item Value Reference Range Comments Color (test code=COLOR) Yellow Yellow,Straw,Pl yellow Clarity (test code=CLAR) Clear Clear Specific [place] (test code=SPGR) 1.008 1.001-1.035 pH (test code=PH) [...]
[2018-11-02] MEDS ORDERED: FENTANYL CITR 100 MCG/2 ML ONE (12:17)
[2018-11-02] MEDS ORDERED: ONDANSETRON 4 MG/2 ML VIAL ONE (12:17)
[2018-11-02 12:19] LABS: Absolute Lymphocytes (CBC) 2.8 K/uL (0.7-4.9); Basophils % 1.6 % (0-1.3); Eosinophils % 5.6 % (0-4.4); Hematocrit 35.1 % (39.6-49.0); Lymphocytes % 26.6 % (15.3-44.8); MPV 8.4 fL (7.6-11.3); Monocytes % 7.9 % (3.3-12.3); RBC Red Blood Cell Count 4.08 M/uL (4.33-5.43)
[2018-11-02 12:35] LABS: ALT/SGPT 18 U/L (12-78); AST/SGOT 11 U/L (15-37); Albumin 3.5 g/dL (3.4-5.0); Alkaline Phosphatase 92 U/L (45-117); BUN Blood Urea Nitrogen 6 mg/dL (7-18); Bicarbonate 29 mmol/L (21-32); Bilirubin Direct < 0.1 mg/dL (0-0.2); Bilirubin Total 0.2 mg/dL (0.2-1.0); Glucose Level 90 mg/dL (74-106); Lipase 143 U/L (73-393); Potassium 3.5 mmol/L (3.5-5.1); Protein, Total 6.8 g/dL (6.4-8.2); Sodium Level 141 mmol/L (136-145)
--- NOTE | 2018-11-02 12:56 | RAD REPORT ---
EXAM DESCRIPTION: CT - Abdomen Pelvis W Contrast - 11/02/2018 12:45 pm CLINICAL HISTORY: Abdominal pain, nausea, vomiting and diarrhea COMPARISON: None. TECHNIQUE: Biphasic, helical CT imaging of the abdomen and pelvis was performed following 100 ml non -ionic IV contrast. No oral contrast was given. All CT scans are performed using dose optimization technique as appropriate and may include automated exposure control or mA/KV adjustment according to patient size. FINDINGS: No suspicious findings in the lung bases. Liver is prominent in size. In the subcapsular dome a 10 millimeter low-density focus is probably a c yst. No suspicious liver parenchymal finding. Spleen and pancreas show no suspicious findings. Gallbl adder is contracted. No biliary tree dilatation. Symmetric renal function is seen with no hydronephrosis or suspicious renal mass. No pyelonephritis o r acute parenchymal process. No obstructing calculi. Patient has punctate 1 mm sized calyx calculi in each kidney. No adrenal abnormality. Urinary bladder, prostate gland and seminal vesicles show no dennison spicious findings. No gastric dilatation or gastric wall thickening. No appendicitis findings. Moderate stool volume chanel ls the colon. This is more pronounced in the sigmoid colon. Wall thickening of the distal rectum is e vident. There is some mild congestion or edema in the perirectal fat. No discrete mass seen. No free air, pneumatosis or abnormal free fluid collection. No mass or bulky lymphadenopathy. Patient has a small 15 millimeter umbilical hernia and a small fat only left inguinal hernia. No suspicious bony findings. IMPRESSION: Distal rectal wall thickening and congestion and edema in the adjacent fat. Correlation is needed with any proctitis history or exam findings. Moderately large stool volume filling the colon. No appendicitis or other acute GI finding noted. Prominent size to the liver. No focal suspicious liver finding. Nonobstructing bilateral calyx calculi. No obstructing calculi or other acute process.
--- NOTE | 2018-11-02 13:25 | ER ---
Nurse's Notes [facility] Name: Vaughn Quintero II Age: 33 yrs Sex: Male : 1985 Arrival Date: 11/02/2018 Time: 11:40 Bed 7 Private MD: Diagnosis: Vomiting;Diarrhea, unspecified;Proctitis Presentation: 11/02 11:48 Presenting complaint: Patient states: has had mid abd pain, sharp pain, vomiting and iw diarrhea every time he eats, has had bright red blood in stool, was seen in ER and given meds to go home with. Transition of care: patient was not received from another setting of care. Onset of symptoms was October 26, 2018. Risk Assessment: Do you want to hurt yourself or someone else? Patient reports no desire to harm self or others. Initial Sepsis Screen: Does the patient meet any 2 criteria? No. Patient's initial sepsis screen is negative. Does the patient have a suspected source of infection? No. Patient's initial sepsis screen is negative. Care prior to arrival: None. 11:48 Method Of Arrival: Ambulatory iw 11:48 Acuity: KARTIK 3 iw Triage Assessment: 13:32 General: Appears in no apparent distress. Behavior is calm. GI: Abd is soft and non iw tender X 4 quads. Historical: - Allergies: 11:49 ketorolac tromethamine; sv 11:49 PENICILLINS; sv 11:49 Sulfa (Sulfonamide Antibiotics); sv 11:49 Tramadol HCl; sv - PMHx: 11:49 Chronic pain; sv - PSHx: 11:49 left ankle; shoulder; sv - Immunization history:: Adult Immunizations up to date. - Social history:: Smoking status: Patient uses tobacco products, smokes one-half pack cigarettes per day. - Ebola Screening: : No symptoms or risks identified at this time. Screenin:49 Abuse screen: Denies threats or abuse. Denies injuries from another. Nutritional sv screening: No deficits noted. Tuberculosis screening: No symptoms or risk factors identified. Fall Risk None identified. Assessment: 11:48 General: Appears in no apparent distress. uncomfortable, well developed, Behavior is sv calm, cooperative, appropriate for age. Pain: Complains of pain in abdomen Pain currently is 6 out of 10 on a pain scale. Quality of pain is described as crampy, Is intermittent. Neuro: Level of Consciousness is awake, alert, obeys commands, Oriented to person, place, time, situation, Moves all extremities. Full function. Respiratory: Respiratory effort is even, unlabored, Respiratory pattern is regular, symmetrical. GI: Abdomen is flat, Reports bloody stool, nausea, vomiting. Derm: Skin is pink, warm \T\ dry. 13:00 GI: Bowel sounds present X 4 quads. Abd is soft and non tender X 4 quads. iw 13:00 Reassessment: Patient appears in no apparent distress at this time. Patient and/or sv family updated on plan of care and expected duration. Pain level reassessed. Patient is alert, oriented x 3, equal unlabored respirations, skin warm/dry/pink. 13:31 Reassessment: Patient appears in no apparent distress at this time. Patient and/or iw family updated on plan of care and expected duration. Pain level reassessed. Patient is alert, oriented x 3, equal unlabored respirations, skin warm/dry/pink. Pain: Denies pain. Vital Signs: 11:53 BP 120 / 77; Pulse 86; Resp 16; Temp 98.7; Pulse Ox 100% on R/A; Pain 6/10; iw 13:00 Pain 0/10; sv 13:31 BP 124 / 67; Pulse 74; Resp 16; Temp 98.0; Pulse Ox 100% on R/A; Pain 0/10; iw ED Course: 11:40 Patient arrived in ED. as 11:44 Geeta Aguilar, RN is Primary Nurse. sv 11:47 Arm band placed on. sv 11:49 Patient has correct armband on for positive identification. Bed in low position. Call sv light in reach. Pulse ox on. NIBP on. Door closed. Lights dimmed. Head of bed elevated. 11:50 Santo Clark PA is PHCP. [facility] 11:50 Heath Calvert MD is Attending Physician. jm 11:53 Triage completed. iw 12:05 Initial lab(s) drawn, by me, sent to lab. Inserted saline lock: 20 gauge in right sv antecubital area, using aseptic technique. Blood collected. Flushed right antecubital with 5 ml normal saline. 12:47 CT Abd/Pelvis - IV Contrast Only In Process Unspecified. EDMS 13:23 Pedro Lindsey MD is Referral Physician. [facility] 13:31 No provider procedures requiring assistance completed. IV discontinued, intact, iw bleeding controlled, No redness/swelling at site. Pressure dressing applied. Administered Medications: 12:10 Drug: Zofran 4 mg Route: IVP; Site: right antecubital; sv 13:00 Follow up: Response: No adverse reaction; Marked relief of symptoms sv 12:12 Drug: fentaNYL (PF) 25 mcg Route: IVP; Site: right antecubital; sv 13:00 Follow up: Pain 0/10 Adult; Response: No adverse reaction; Pain is decreased sv Outcome: 13:24 Discharge ordered by MD. [facility] 13:31 Discharged to home ambulatory. iw 13:31 Condition: good 13:31 Discharge instructions given to patient, Instructed on discharge instructions, follow up and referral plans. medication usage, Demonstrated understanding of instructions, follow-up care, medications, Prescriptions given X 1. 13:33 Patient left the ED. iw Signatures: Dispatcher [employer] Geeta Fischer, RN RN Santo Clark PA PA jmm Martinez, Amelia as Roberta Zapata, NELSON DAMON iw
--- NOTE | 2018-11-02 13:25 | EDPHYS ---
[facility] Name: Vaughn Quintero II Age: 33 yrs Sex: Male : 1985 Arrival Date: 11/02/2018 Time: 11:40 Bed 7 Private MD: ED Physician Heath Calvert HPI: 11/02 11:57 This 33 yrs old Male presents to ER via Ambulatory with complaints of jmm Abdominal Pain, Bloody Stools, Vomiting. 11:57 The patient presents with abdominal pain in the lower abdomen. Onset: The jmm symptoms/episode began/occurred gradually, 1 week(s) ago. The symptoms do not radiate. The symptoms are described as achy, intermittent. Modifying factors: The symptoms are alleviated by nothing, the symptoms are aggravated by eating. This is a 33 year old male with a history of chronic pain that presents to the ED with complaints of lower abdominal pain, vomiting, watery diarrhea beginning 1 week ago. Patient was concerned he may have a bowel obstruction. . Historical: - Allergies: 11:49 ketorolac tromethamine; sv 11:49 PENICILLINS; sv 11:49 Sulfa (Sulfonamide Antibiotics); sv 11:49 Tramadol HCl; sv - PMHx: 11:49 Chronic pain; sv - PSHx: 11:49 left ankle; shoulder; sv - Immunization history:: Adult Immunizations up to date. - Social history:: Smoking status: Patient uses tobacco products, smokes one-half pack cigarettes per day. - Ebola Screening: : No symptoms or risks identified at this time. ROS: 11:57 Constitutional: Negative for fever, chills, and weight loss, Cardiovascular: Negative jmm for chest pain, palpitations, and edema, Respiratory: Negative for shortness of breath, cough, wheezing, and pleuritic chest pain. 11:57 Abdomen/GI: Positive for abdominal pain, nausea and vomiting, diarrhea. 11:57 All other systems are negative. Exam: 11:57 Constitutional: This is a well developed, well nourished patient who is awake, alert, jmm and in no acute distress. Head/Face: atraumatic. Eyes: EOMI, no conjunctival erythema appreciated ENT: Moist Mucus Membranes Neck: Trachea midline, Supple Chest/axilla: Normal chest wall appearance and motion. Cardiovascular: Regular rate and rhythm. No edema appreciated Respiratory: Normal respirations, no respiratory distress appreciated 11:57 Abdomen/GI: Inspection: abdomen appears normal, Bowel sounds: normal, Palpation: moderate abdominal tenderness, in the right lower quadrant and left lower quadrant. 11:57 Back: ROM is normal. 11:57 Musculoskeletal/extremity: ROM: intact in all extremities. 11:57 Skin: Appearance: Color: normal in color. 11:57 Neuro: Orientation: is normal, Mentation: is normal, Memory: is normal. 11:57 Psych: Behavior/mood is pleasant, cooperative. Vital Signs: 11:53 BP 120 / 77; Pulse 86; Resp 16; Temp 98.7; Pulse Ox 100% on R/A; Pain 6/10; iw 13:00 Pain 0/10; sv 13:31 BP 124 / 67; Pulse 74; Resp 16; Temp 98.0; Pulse Ox 100% on R/A; Pain 0/10; iw MDM: 11:57 Patient medically screened. [facility] 13:22 Data reviewed: vital signs, nurses notes. [facility] 13:22 Counseling: I had a detailed discussion with the patient and/or guardian regarding: the [facility] historical points, exam findings, and any diagnostic results supporting the discharge/admit diagnosis, radiology results, the need for outpatient follow up, to return to the emergency department if symptoms worsen or persist or if there are any questions or concerns that arise at home. ED course: Patient's pain relieved in the ED. Patient is alert and non toxic in appearance in the ED. CT imaging concerning for proctitis which would explain bright red stools. Patient is advised to follow up with GI for further evaluation. Patient was otherwise given strict return precautions. Patient understood and agrees with the plan of care. . 11/02 11:58 Order name: Basic Metabolic Panel; Complete Time: 12:36 [facility] 11/02 11:58 Order name: CBC with Diff; Complete Time: 12:26 [facility] 11/02 11:58 Order name: Creatinine for Radiology; Complete Time: 12:36 [facility] 11/02 11:58 Order name: Hepatic Function; Complete Time: 12:36 [facility] 11/02 11:58 Order name: Lipase; Complete Time: 12:36 [facility] 11/02 11:58 Order name: CT Abd/Pelvis - IV Contrast Only; Complete Time: 13:00 [facility] 11/02 11:58 Order name: IV Saline Lock; Complete Time: 12:14 [facility] 11/02 11:58 Order name: Labs collected and sent; Complete Time: 12:14 [facility] Administered Medications: 12:10 Drug: Zofran 4 mg Route: IVP; Site: right antecubital; sv 13:00 Follow up: Response: No adverse reaction; Marked relief of symptoms sv 12:12 Drug: fentaNYL (PF) 25 mcg Route: IVP; Site: right antecubital; sv 13:00 Follow up: Pain 0/10 Adult; Response: No adverse reaction; Pain is decreased sv Disposition: 18:56 Co-signature as Attending Physician, Heath Calvert MD I agree with the assessment and kdr plan of care. Disposition: 11/02/18 13:24 Discharged to Home. Impression: Vomiting, Diarrhea, unspecified, Proctitis. - Condition is Stable. - Discharge Instructions: Diarrhea, Adult, Nausea and Vomiting, Adult, Proctitis. - Prescriptions for Bentyl 20 mg Oral Tablet - take 1 tablet by ORAL route every 6 hours As needed; 20 tablet. - Medication Reconciliation Form, Thank You Letter, Antibiotic Education, Prescription Opioid Use form. - Follow up: Pedro Lindsey MD; When: 2 - 3 days; Reason: Recheck today's complaints, Continuance of care, Re-evaluation by your physician. Signatures: Dispatcher [employer] Geeta Fischer, RN RN Heath Lin MD MD kdr Mickail, Joel, PA PA [facility] Roberta Zapata RN RN iw Corrections: (The following items were deleted from the chart) 13:33 13:24 11/02/2018 13:24 Discharged to Home. Impression: Vomiting; Diarrhea, unspecified; iw Proctitis. Condition is Stable. Forms are Medication Reconciliation Form, Thank You Letter, Antibiotic Education, Prescription Opioid Use. Follow up: Pedro Lindsey; When: 2 - 3 days; Reason: Recheck today's complaints, Continuance of care, Re-evaluation by your physician. [facility]
[2018-11-02 14:09] VITALS: O2SAT 100
[2018-11-02 14:11] VITALS: BP 124/67; TEMP 98
== END 2018-11-02 13:33 | disposition home or self-care (01) ==
LOC: ER 11:38
DX: K62.89 Other specified diseases of anus and rectum (principal); R19.7 Diarrhea, unspecified; F17.210 Nicotine dependence, cigarettes, uncomplicated; Z88.0 Allergy status to penicillin; Z88.2 Allergy status to sulfonamides; Z88.5 Allergy status to narcotic agent; Z88.8 Allergy status to other drugs, medicaments and biological substances
CPT/HCPCS: 36415; 74177; 80048; 80076; 83690; 85025; 96374; 96375; 99284; J2405; J3010; Q9967